=== PATIENT | female | born 1970 | race Two or more races ===

== ENCOUNTER 2024-06-22 00:31 | Emergency (ER) | payer MEDICAID, SELFPAY ==
[2024-06-22 00:59] VITALS: BP 135/79; PULSE 96; RESP 18; TEMP 36.5; O2SAT 95
--- NOTE | 2024-06-22 01:08 | PD.EDADULT ---
ED General RME/HPI General Chief complaint: Allergic Reaction Stated complaint: RASH,ITCHING Time Seen by Provider: 06/22/24 00:45 Arrival date/time: 06/22/24 00:31 RME / HPI RME / HPI narrative: Patient is 54 years old female with past medical history significant for IDDM presented to the ED due to hives in her upper and lower extremities. She reports symptoms started today morning and were bothering her throughout the day. She is taking cetirizine daily but it did not help her today. She reports rash is itchy. She was previously seen in the ED due to similar complaints. She is undergoing diagnostic evaluation with her PCP regarding this hives. She denies any fever, chills, chest pain, shortness of breath, difficulty breathing, facial swelling. She cannot tell what triggers her allergic reaction. Related Data Home Medications ?Medication ?Instructions ?Recorded ?Confirmed metformin 500 mg tablet 500 mg PO BID 10/02/19 10/02/19 Previous Rx's ?Medication ?Instructions ?Recorded albuterol sulfate 90 mcg/actuation 2 puff inhalation QID PRN 09/29/19 aerosol inhaler shortness of breath or wheezing #18 grams amlodipine 10 mg tablet 10 mg PO QDAY #30 tabs 10/17/19 blood sugar diagnostic (Blood #100 ea 10/17/19 Glucose Test strips) blood-glucose meter (Blood Glucose #1 ea 10/17/19 Monitoring kit) insulin glargine 100 unit/mL (3 7 unit (0.07 mL) subcut QDAY #15 mL 10/17/19 mL) subcutaneous pen (Basaglar KwikPen U-100 Insulin) lancets 30 gauge (BD Ultra-Fine II #100 ea 10/17/19 Lancets) pen needle, diabetic 31 gauge x #50 ea 10/17/1904/20 (Lite Touch Insulin Pen [place]) ciprofloxacin HCl 500 mg tablet 500 mg PO BID #10 tabs 11/07/21 diclofenac sodium 50 mg 50 mg PO Q12H PRN pain #30 tabs 11/06/22 tablet,delayed release famotidine 40 mg tablet (Pepcid) 40 mg PO QDAY #14 tabs 02/05/23 loratadine 10 mg capsule 10 mg PO QDAY PRN allergy symptoms 02/05/23 #30 caps montelukast 10 mg tablet 10 mg PO QDAY #30 tabs 02/05/23 (Singulair) albuterol sulfate 90 mcg/actuation 2 puff inhalation Q6H PRN 12/22/23 aerosol inhaler (Ventolin HFA) shortness of breath or wheezing #8.5 grams amoxicillin 875 mg-potassium 1 tab PO BID #14 tabs 12/22/23 clavulanate 125 mg tablet promethazine-DM 6.25 mg-15 mg/5 mL 5 ml PO Q6H PRN cough #118 mL 12/22/23 oral syrup cetirizine 10 mg tablet 10 mg PO QDAY #30 tabs 06/22/24 prednisone 20 mg tablet 40 mg PO BID 2 days #8 tabs 06/22/24 triamcinolone acetonide 0.1 % 1 applic topical BID PRN itching 06/22/24 topical cream #80 grams Allergies Allergy/AdvReac Type Severity Reaction Status Date / Time ondansetron (From Zofran) Allergy Severe Hives Verified 06/22/24 00:32 Review of Systems Review of Systems Systems Reviewed: All systems reviewed, normal except as documented ED Exam Narrative Physical exam: Gen: Well-developed and well-nourished female. HEENT: NCAT, PERRLA, EOMI, MMM, anicteric conjunctivae. CVS: normal S1 and S2. RRR. No M/R/G. Resp: CTA B/L. No rhonchi, rales, crackles or wheezing. Abd: soft, obese, non-tender, non-distended. BS+ in all 4 quadrants. MSK: Good ROM in BUE & BLE. No edema. Hives on extensor surface of upper arms and thighs. Neuro: CN II-XII grossly intact. Strength 5/5 in BUE & BLE. Alert and oriented x3. Psych: appropriate mood and affect. Course Quality Measures none Orders Category Date Time Status DiphenhydrAMINE [Benadryl] Med 06/22/24 01:07 Discontinued 50 mg PO X1 ONE Famotidine [Pepcid] Med 06/22/24 01:34 Discontinued 40 mg PO X1 ONE Triamcinolone Acet Oint 0.5% [Kenalog Oint 0.5%] Med 06/22/24 01:26 Discontinued See Dose Instructions TOP X1 ONE predniSONE Med 06/22/24 01:26 Discontinued 60 mg PO X1 ONE Vital Signs Vital signs: Vital Signs Temperature 97.7 F 06/22/24 00:59 Pulse Rate 96 06/22/24 00:59 Respiratory Rate 18 06/22/24 00:59 Blood Pressure 135/79 H 06/22/24 00:59 Pulse Oximetry (%) 95 06/22/24 00:59 Oxygen Delivery Method Room Air 06/22/24 00:59 [facility] Patient data External records reviewed:: [facility] previous records Clinical information provided by:: patient and family Social determinants that could affect healthcare access:: none Patient has the following chronic illnesses:: IDDM How is presenting disease/condition affected by chronic disease/condition?: uneffected by Evaluation data The following diagnostics were reviewed and interpreted by me:: other (specify) Lab and/or radiology exams considered but not ordered:: CBC, CMP Interpretation Summary: no diagnostic work up was ordered. Medications Medications considered but not ordered:: Fexofenadine, loratadine, cetirizine Medication administrations:: Medication Administration History Discontinued Medications Diphenhydramine HCl (Diphenhydramine Elix 25 Mg/10 Ml Udc) 50 mg PO X1 ONE Stop: 06/22/24 01:08 Last Admin: 06/22/24 01:21 Dose: 50 mg Documented By: Famotidine (Famotidine 20 Mg Tablet) 40 mg PO X1 ONE Stop: 06/22/24 01:35 Last Admin: 06/22/24 01:44 Dose: 40 mg Documented By: CVL Prednisone (Prednisone 20 Mg Tablet) 60 mg PO X1 ONE Stop: 06/22/24 01:27 Last Admin: 06/22/24 02:04 Dose: 60 mg Documented By: CVL Triamcinolone Acetonide (Triamcinolone Acet Oint 0.5% 15 Gm Tube) 0 gm TOP X1 ONE Stop: 06/22/24 01:27 Last Admin: 06/22/24 02:07 Dose: Not Given Documented By: CVL Non-Admin Reason: Medication Not Available Diphenhydramine 50 mg. Consultations Consultation(s) initiated? (list below): No Diagnosis Differential Diagnosis ED Complaint MDM: Hives, cellulitis, burn Most likely diagnosis given after review of the tests above:: Hives Admission Indicated Admission indicated?: not indicated Explain why admission is indicated or not indicated:: Patient has simple allergic reaction as hives. No generalized symptoms. Admission Request Was there a request for admission?: No Disposition Plan Disposition Plan: Discharge Discharge Attestation Discharge Attestation: The patient and all family members were given an opportunity to ask questions and understood the discharge instructions. Discharge instructions specifically effects, indications for sooner follow up or return to the emergency department, and the expected course of current diagnosis. Patient condition: Stable Medical Decision Making Differential Diagnosis Differential Diagnosis: Hives, cellulitis, burn Discharge Plan Plan Patient Disposition: HOME (Self Care) Patient condition on transfer: Stable Prescriptions/Referrals Prescriptions/Med Rec: New cetirizine 10 mg tablet 10 mg PO QDAY Qty: 30 0RF prednisone 20 mg tablet 40 mg PO BID 2 Days Qty: 8 0RF Taper: Prednisone Taper 20 mg DAILY for 2 Days and 0 Hour 10 mg DAILY for 2 Days and 0 Hour 5 mg DAILY for 7 Days and 0 Hour triamcinolone acetonide 0.1 % cream 1 applic topical BID PRN (Reason: itching) Qty: 80 1RF No Action albuterol sulfate 90 mcg/actuation HFA aerosol inhaler 2 puff IH QID PRN (Reason: shortness of breath or wheezing) Qty: 18 0RF ciprofloxacin HCl 500 mg tablet 500 mg PO BID Qty: 10 0RF metformin 500 mg Tablet 500 mg PO BID amlodipine 10 mg tablet 10 mg PO QDAY Qty: 30 0RF Basaglar KwikPen U-100 Insulin 100 unit/mL (3 mL) insulin pen 7 unit SC QDAY Qty: 15 0RF (DME) blood sugar diagnostic [Blood Glucose Test] Strip See Rx Instructions .ROUTE .MEDSUPPLY Qty: 100 0RF Rx Instructions: As directed check blood sugar times a day (DME) blood-glucose meter [Blood Glucose Monitoring] Kit See Rx Instructions .ROUTE .MEDSUPPLY Qty: 1 0RF Rx Instructions: As directed check blood sugar times a day (DME) pen needle, diabetic [Lite Touch Insulin Pen [place]] 31 gauge x 1/4 needle See Rx Instructions .ROUTE .MEDSUPPLY Qty: 50 0RF Rx Instructions: As directed (DME) lancets [BD Ultra-Fine II Lancets] 30 gauge misc See Rx Instructions .ROUTE .MEDSUPPLY Qty: 100 0RF Rx Instructions: As directed montelukast [Singulair] 10 mg tablet 10 mg PO QDAY Qty: 30 0RF loratadine 10 mg capsule 10 mg PO QDAY PRN (Reason: allergy symptoms) Qty: 30 0RF famotidine [Pepcid] 40 mg tablet 40 mg PO QDAY Qty: 14 0RF albuterol sulfate [Ventolin HFA] 90 mcg/actuation HFA aerosol inhaler 2 puff inhalation Q6H PRN (Reason: shortness of breath or wheezing) Qty: 8.5 0RF promethazine-DM 6.25-15 mg/5 mL syrup 5 ml PO Q6H PRN (Reason: cough) Qty: 118 0RF Rx Instructions: sugar-free DM, please amoxicillin-pot clavulanate 875-125 mg tablet 1 tab PO BID Qty: 14 0RF diclofenac sodium 50 mg tablet,delayed release (DR/EC) 50 mg PO Q12H PRN (Reason: pain) Qty: 30 0RF Problem List Clinical Impression: Hives Patient/Caregiver Discharge Instructions Education Materials: ED Hives (Adult) Additional Instructions: Discharge instructions from Dr. Ortega: 1. You were treated today for allergic reaction. 2. To help prevent the reaction going into your airways and your throat, take prednisone as prescribed. 3. And take Benadryl 50 mg every 6-8 hours today and tomorrow then as needed. 4. Increase oral fluid and maintain clear urine.? If dark or yellow, increase oral fluid.? This will help eliminate any allergens in your blood system. 5. Despite severe itching, avoid scratching. Will make the itching worse and damage to the skin. Apply cold compress and triamcinolone cream instead. 6. See your private doctor on 06/24/2024 for recheck. Ask for a referral to see an material liaison so you can be tested to know what to avoid in the future. 7. Seek immediate medical care with worsening, breathing difficulty, or with any concerns. Instrucciones de alisson del Dr. Ortega: 1. Hoy le trataron por gabriel reacci?n al?rgica. 2. Para ayudar a prevenir que la reacci?n llegue a las v?as respiratorias y la garganta, tome prednisona seg?n lo prescrito. 3. Y tome Benadryl 50 mg cada 6-8 horas hoy y ma?priti seg?n sea necesario. 4. Aumente la ingesta de l?quidos por v?a oral y mantenga la orina jocy. Si es oscura o amarilla, aumente la ingesta de l?quidos por v?a oral. [place] ayudar? a eliminar los al?rgenos de [place] sistema sangu?mesha. 5. A pesar de la picaz?n intensa, evite rascarse. [place] empeorar? la picaz?n y da?ar? la piel. En [place] lugar, aplique compresas fr?as y crema de triamcinolona. 6. Visite a [place] m?dico privado el 01/17/2025 para que le gunner un nuevo control. Pida gabriel derivaci?n para cortez a un alerg?logo para que le gunner pruebas y sepan qu? evitar en el futuro. 7. Busque atenci?n m?dica inmediata si empeora, tiene dificultad para respirar o tiene alguna inquietud. Print Language: Armenian Stand Alone Forms: [facility] Award Info., Patient Portal Info Letter Attestation Attestation Patient presented with [id number] of scattered rash with severe itching. Make clinical diagnosis of hives. Treatment here included prednisone and Benadryl and famotidine. She started to feel better. Recommended outpatient care with prednisone and Benadryl and triamcinolone cream. Based on my best medical judgment, made decision no further evaluation or treatment indicated at this time. Patient understands and agrees to the discharge instructions customized and printed, see below. Discharge instructions from Dr. Ortega: 1. You were treated today for allergic reaction. 2. To help prevent the reaction going into your airways and your throat, take prednisone as prescribed. 3. And take Benadryl 50 mg every 6-8 hours today and tomorrow then as needed. 4. Increase oral fluid and maintain clear urine.? If dark or yellow, increase oral fluid.? This will help eliminate any allergens in your blood system. 5. Despite severe itching, avoid scratching. Will make the itching worse and damage to the skin. Apply cold compress and triamcinolone cream instead. 6. See your private doctor on 06/24/2024 for recheck. Ask for a referral to see an material liaison so you can be tested to know what to avoid in the future. 7. Seek immediate medical care with worsening, breathing difficulty, or with any concerns. Instrucciones de alisson del Dr. Ortega: 1. Hoy le trataron por gabriel reacci?n al?rgica. 2. Para ayudar a prevenir que la reacci?n llegue a las v?as respiratorias y la garganta, tome prednisona seg?n lo prescrito. 3. Y tome Benadryl 50 mg cada 6-8 horas hoy y ma?priti seg?n sea necesario. 4. Aumente la ingesta de l?quidos por v?a oral y mantenga la orina jocy. Si es oscura o amarilla, aumente la ingesta de l?quidos por v?a oral. [place] ayudar? a eliminar los al?rgenos de [place] sistema sangu?mesha. 5. A pesar de la picaz?n intensa, evite rascarse. [place] empeorar? la picaz?n y da?ar? la piel. En [place] lugar, aplique compresas fr?as y crema de triamcinolona. 6. Visite a [place] m?dico privado el 01/17/2025 para que le gunner un nuevo control. Pida gabriel derivaci?n para cortez a un alerg?logo para que le gunner pruebas y sepan qu? evitar en el futuro. 7. Busque atenci?n m?dica inmediata si empeora, tiene dificultad para respirar o tiene alguna inquietud. Trey Ortega MD
[2024-06-22] MEDS: DiphenhydrAMINE ELIX 25 MG/10 ML UDC 50 MG PO (01:21)
[2024-06-22] MEDS: FAMOTIDINE 20 MG TABLET 40 MG PO (01:44)
[2024-06-22] MEDS: predniSONE 20 MG TABLET 60 MG PO (02:04)
[2024-06-22 02:12] VITALS: RESP 18
== END 2024-06-22 02:13 | disposition home or self-care (01) ==
LOC: SERX 01:30
PROVIDERS: Emergency Provider Emergency Medicine; PCP Physician Assistant
DX: L50.9 Urticaria, unspecified (principal); E11.9 Type 2 diabetes mellitus without complications; Z79.4 Long term (current) use of insulin
CPT/HCPCS: 99282; J7512; A9270

== ENCOUNTER 2024-07-21 03:42 | Emergency (ER) | payer MEDICAID, SELFPAY ==
[2024-07-21 03:44] VITALS: BMI 28.3
[2024-07-21 03:55] VITALS: BP 131/80; PULSE 77; RESP 18; TEMP 36.9; O2SAT 98
[2024-07-21] MEDS: DEXAMETHASONE SOD PHOS INJ 10 MG/ML VIAL PO (04:55)
--- NOTE | 2024-07-21 05:51 | EDNOTE_ITS ---
ED Allergic Reaction RME/HPI General Chief complaint: Skin/Abscess/Foreign Body Stated complaint: RASH ALL OVER BODY Time Seen by Provider: 07/21/24 04:24 Arrival date/time: 07/21/24 03:42 54F with history of DM and chronic itchiness presents to ED with several days of itchy rash. Patient denies SOB, throat swelling, as well as new foods, meds, and hygiene products. Patient has seen some specialist but they only did blood work and said patient was fine. Limitations: no limitations Related Data Home Medications ?Medication ?Instructions ?Recorded ?Confirmed metformin 500 mg tablet 500 mg PO BID 10/02/1910/01 Previous Rx's ?Medication ?Instructions ?Recorded albuterol sulfate 90 mcg/actuation 2 puff inhalation Q ID PRN 09/29/19 aerosol inhaler shortness of breath or wheez ing #18 grams amlodipine 10 mg tablet 10 mg PO QDAY #30 tabs 10/16 blood sugar diagnostic (Blood #100 ea 10/17/19 Glucose Test strips) blood-glucose meter (Blood Glucose #1 ea 10/17/19 Monitoring kit) insulin glargine 100 unit/mL (3 7 unit (0.07 mL) subcu t QDAY #15 mL 10/17/19 mL) subcutaneous pen (Basaglar KwikPen U-100 Insulin) lancets 30 gauge (BD Ultra-Fine II #100 ea 10/17/19 Lancets) pen needle, diabetic 31 gauge x #50 ea 10/17/19 1/ (Lite Touch Insulin Pen [place]) ciprofloxacin HCl 500 mg tablet 500 mg PO BID #10 tabs 11/07/21 diclofenac sodium 50 mg 50 mg PO Q12H PRN pain #30 t abs 11/06/22 tablet,delayed release famotidine 40 mg tablet (Pepcid) 40 mg PO QDAY #14 tab s 02/05/23 loratadine 10 mg capsule 10 mg PO QDAY PRN allergy sy mptoms 02/05/23 #30 caps montelukast 10 mg tablet 10 mg PO QDAY #30 tabs 02/05 (Singulair) albuterol sulfate 90 mcg/actuation 2 puff inhalation Q 6H PRN 12/22/23 aerosol inhaler (Ventolin HFA) shortness of breath or wheezing #8.5 grams amoxicillin 875 mg-potassium 1 tab PO BID #14 tabs 10/08 clavulanate 125 mg tablet promethazine-DM 6.25 mg-15 mg/5 mL 5 ml PO Q6H PRN cou gh #118 mL 12/22/23 oral syrup cetirizine 10 mg tablet 10 mg PO QDAY #30 tabs 06/22 triamcinolone acetonide 0.1 % 1 applic topical BID PRN itching 06/22/24 topical cream #80 grams Allergies Allergy/AdvReac Type Severity Reaction Status Date / Time ondansetron (From Zofran) Allergy Severe Hives Verified 07/21/24 03:48 Review of Systems Review of Systems Systems Reviewed: All systems reviewed, normal except as documented Constitutional Constitutional: Reports system reviewed and no additional complaints, except as documented, Denies fever(s) and Denies headache(s) ENT Ears, Nose, Mouth, and Throat: Denies disequilibrium and Denies headache(s) Cardiovascular Cardiovascular: Reports system reviewed and no additional complaints, except as documented, Denies chest pain and Denies dyspnea Respiratory Respiratory: Reports system reviewed and no additional complaints, except as documented, Denies cough and Denies dyspnea Gastrointestinal Gastrointestinal: Reports system reviewed and no additional complaints, except as documented, Denies abdominal pain, Denies nausea and Denies vomiting Integumentary/Breasts Skin/Breast: Reports as per HPI, Reports pruritus and Reports rash Neurologic Neurologic: Reports system reviewed and no additional complaints, except as documented, Denies confusion, Denies disequilibrium and Denies headache(s) Psychiatric Psychiatric: Denies confusion Past Medical History Past Medical History CARDIAC: Negative Congestive Heart Failure RESPIRATORY: Negative Chronic Obstructive Pulmonary Disease (COPD) GENITOURINARY: Negative Renal Disease ENDOCRINE: Positive Diabetes Mellitus Type 2; Negative Diabetes Mellitus Type 1 Social History SMOKING STATUS: Never smoker SECOND HAND EXPOSURE: No ED Exam General Limitations: Present no limitations General appearance: Present alert and in no apparent distress Head Head exam: Present atraumatic Eye Eye exam: Present normal appearance, PERRL and EOMI ENT ENT exam: Present normal exam, normal oropharynx and mucous membranes moist Neck Neck exam: Present normal inspection, full ROM and trachea midline Chest Chest inspection: Present normal inspection and symmetric chest wall rise Respiratory Respiratory exam: Present normal lung sounds bilaterally Cardiovascular Cardiovascular exam: Present regular rate, normal rhythm and normal heart sounds Abdominal Exam Abdominal exam: Present soft and normal bowel sounds Extremities Exam Extremities exam: Present normal inspection and full ROM Back Exam Back exam: Present normal inspection and full ROM Neurological Exam Neurological exam: Present alert, oriented X3 and CN II-XII intact Psychiatric Psychiatric exam: Present normal affect and normal mood Skin Skin exam: Present warm, dry, intact and normal color Course Quality Measures none Orders Category Date Time Status Dexamethasone Inj [Decadron Inj] Med 07/21/24 04:24 Discontinued 10 mg PO X1 ONE Vital Signs Vital signs: Vital Signs Temperature 98.4 F 07/21/24 03:55 Pulse Rate 77 07/21/24 03:55 Respiratory Rate 18 07/21/24 03:55 Blood Pressure 131/80 H 07/21/24 03:55 Pulse Oximetry (%) 98 07/21/24 03:55 O2 at 98% on RA and WNLs Allergic Reaction MDM Narrative MDM Narrative:: 54F with history of DM and chronic itchiness presents to ED with several days of itchy rash. Patient denies SOB, throat swelling, as well as new foods, meds, and hygiene products. Patient has seen some specialist but they only did blood work and said patient was fine. Physical exam reveals no obvious rash. Normal WOB. Patient is afebrile, calm, and alert. Steroids improved itching. 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 Patient data External records reviewed:: [facility] previous records Clinical information provided by:: patient Social determinants that could affect healthcare access:: none Patient has the following chronic illnesses:: DM How is presenting disease/condition affected by chronic disease/condition?: exacerbated by Evaluation data The following diagnostics were reviewed and interpreted by me:: other (specify) (none) Lab and/or radiology exams considered but not ordered:: not ordered Interpretation Summary: n/a Medications / Prescriptions Medications or Prescriptions considered but not ordered:: ordered Medication administrations:: Medication Administration History Discontinued Medications Dexamethasone Sodium Phosphate (Dexamethasone Sod Phos Inj 10 Mg/Ml Vial) 10 mg PO X1 ONE Stop: 07/21/24 04:25 Last Admin: 07/21/24 04:55 Dose: 10 mg Documented By: EE above Consultations Consultation(s) initiated? (list below): No Diagnosis Differential Diagnosis allergic reaction: anaphylaxis, allergic reaction, angioedema, contact dermatitis, adverse reaction to drug, viral enanthem, urticaria and other (pruritus) Most likely diagnosis given after review of the tests above:: pruritus Admission Indicated Admission indicated?: not indicated Admission Request Was there a request for admission?: No Disposition Plan Disposition Plan: Discharge Discharge Attestation Discharge Attestation: The patient and all family members were given an opportunity to ask questions and understood the discharge instructions. Discharge instructions specifically effects, indications for sooner follow up or return to the emergency department, and the expected course of current diagnosis. Patient condition: Stable Discharge Plan Plan Patient Disposition: HOME (Self Care) Disposition Comment: Stable Prescriptions/Referrals Prescriptions/Med Rec: No Action albuterol sulfate 90 mcg/actuation HFA aerosol inhaler 2 puff IH QID PRN (Reason: shortness of breath or wheezing) Qty: 18 0RF ciprofloxacin HCl 500 mg tablet 500 mg PO BID Qty: 10 0RF metformin 500 mg Tablet 500 mg PO BID amlodipine 10 mg tablet 10 mg PO QDAY Qty: 30 0RF Basaglar KwikPen U-100 Insulin 100 unit/mL (3 mL) insulin pen 7 unit SC QDAY Qty: 15 0RF (DME) blood sugar diagnostic [Blood Glucose Test] Strip See Rx Instructions .ROUTE .MEDSUPPLY Qty: 100 0RF Rx Instructions: As directed check blood sugar times a day (DME) blood-glucose meter [Blood Glucose Monitoring] Kit See Rx Instructions .ROUTE .MEDSUPPLY Qty: 1 0RF Rx Instructions: As directed check blood sugar times a day (DME) pen needle, diabetic [Lite Touch Insulin Pen [place]] 31 gauge x 1/4 needle See Rx Instructions .ROUTE .MEDSUPPLY Qty: 50 0RF Rx Instructions: As directed (DME) lancets [BD Ultra-Fine II Lancets] 30 gauge misc See Rx Instructions .ROUTE .MEDSUPPLY Qty: 100 0RF Rx Instructions: As directed montelukast [Singulair] 10 mg tablet 10 mg PO QDAY Qty: 30 0RF loratadine 10 mg capsule 10 mg PO QDAY PRN (Reason: allergy symptoms) Qty: 30 0RF famotidine [Pepcid] 40 mg tablet 40 mg PO QDAY Qty: 14 0RF albuterol sulfate [Ventolin HFA] 90 mcg/actuation HFA aerosol inhaler 2 puff inhalation Q6H PRN (Reason: shortness of breath or wheezing) Qty: 8.5 0RF promethazine-DM 6.25-15 mg/5 mL syrup 5 ml PO Q6H PRN (Reason: cough) Qty: 118 0RF Rx Instructions: sugar-free DM, please amoxicillin-pot clavulanate 875-125 mg tablet 1 tab PO BID Qty: 14 0RF cetirizine 10 mg tablet 10 mg PO QDAY Qty: 30 0RF triamcinolone acetonide 0.1 % cream 1 applic topical BID PRN (Reason: itching) Qty: 80 1RF diclofenac sodium 50 mg tablet,delayed release (DR/EC) 50 mg PO Q12H PRN (Reason: pain) Qty: 30 0RF Referrals: Abelrado Buchanan PA-C [Primary Care Provider] - In 1 week Problem List Clinical Impression: Other pruritus Patient/Caregiver Discharge Instructions Additional Instructions: Please follow-up with PCP within 24-48 hours and return immediately if symptoms worsen. Follow-up with nuclear licensing engineer and/or counter intelligence. Watch sugars since steroids increase BS. Print Language: [place] Islander Stand Alone Forms: Patient Portal Info Letter PA/JAY JAY Supervising Physician FRANCESCA/JAY JAY Supervising Physician: Dr. Ortega
== END 2024-07-21 06:00 | disposition home or self-care (01) ==
PROVIDERS: Emergency Provider Emergency Medicine; PCP Physician Assistant
DX: L29.89 Other pruritus (principal)
CPT/HCPCS: 99282; J1100

== ENCOUNTER 2024-12-17 10:02 | Emergency (ER) | payer MEDICAID, SELFPAY ==
--- NOTE | 2024-12-17 10:43 | EDNOTE_ITS ---
<Statement entered by Cassandra Lawler MD - 12/28/24 11:18> As co-signing physician, I was present and available for consult prn. I concur with the plan and care as documented by the midlevel provider. ED Allergic Reaction RME/HPI General Chief complaint: Allergic Reaction Stated complaint: RASH ALL OVER BODY SINCE LAST NIGHT Time Seen by Provider: 12/17/24 10:11 Source: patient Arrival date/time: 12/17/24 10:02 54-year-old female with history of type 2 diabetes, hypertension, hyperlipidemia presents to the emergency room with a chief complaint of a generalized rash to the upper abdomen and chest and face x 2 days Mode of arrival: ambulatory Limitations: no limitations Related Data Home Medications ?Medication ?Instructions ?Recorded ?Confirmed metformin 500 mg tablet 500 mg PO BID 10/02/1910/01 Previous Rx's ?Medication ?Instructions ?Recorded albuterol sulfate 90 mcg/actuation 2 puff inhalation Q ID PRN 09/29/19 aerosol inhaler shortness of breath or wheez ing #18 grams amlodipine 10 mg tablet 10 mg PO QDAY #30 tabs 10/16 blood sugar diagnostic (Blood #100 ea 10/17/19 Glucose Test strips) blood-glucose meter (Blood Glucose #1 ea 10/17/19 Monitoring kit) insulin glargine 100 unit/mL (3 7 unit (0.07 mL) subcu t QDAY #15 mL 10/17/19 mL) subcutaneous pen (Basaglar KwikPen U-100 Insulin) lancets 30 gauge (BD Ultra-Fine II #100 ea 10/17/19 Lancets) pen needle, diabetic 31 gauge x #50 ea 10/17/19 1/ (Lite Touch Insulin Pen [place]) ciprofloxacin HCl 500 mg tablet 500 mg PO BID #10 tabs 11/07/21 diclofenac sodium 50 mg 50 mg PO Q12H PRN pain #30 t abs 11/06/22 tablet,delayed release famotidine 40 mg tablet (Pepcid) 40 mg PO QDAY #14 tab s 02/05/23 loratadine 10 mg capsule 10 mg PO QDAY PRN allergy sy mptoms 02/05/23 #30 caps montelukast 10 mg tablet 10 mg PO QDAY #30 tabs 02/05 (Singulair) albuterol sulfate 90 mcg/actuation 2 puff inhalation Q 6H PRN 12/22/23 aerosol inhaler (Ventolin HFA) shortness of breath or wheezing #8.5 grams amoxicillin 875 mg-potassium 1 tab PO BID #14 tabs 10/08 clavulanate 125 mg tablet promethazine-DM 6.25 mg-15 mg/5 mL 5 ml PO Q6H PRN cou gh #118 mL 12/22/23 oral syrup cetirizine 10 mg tablet 10 mg PO QDAY #30 tabs 06/22 triamcinolone acetonide 0.1 % 1 applic topical BID PRN itching 06/22/24 topical cream #80 grams Allergies Allergy/AdvReac Type Severity Reaction Status Date / Time ondansetron (From Zofran) Allergy Severe Hives Verified 12/17/24 10:06 Review of Systems Review of Systems Systems Reviewed: All systems reviewed, normal except as documented Constitutional Constitutional: Reports system reviewed and no additional complaints, except as documented, Denies fatigue, Denies fever(s), Denies headache(s) and Denies weakness Eyes Eyes: Reports system reviewed and no additional complaints, except as documented, Denies blurry vision, Denies change in vision and Denies itchy eyes ENT Ears, Nose, Mouth, and Throat: Reports system reviewed and no additional complaints, except as documented, Denies otalgia, Denies headache(s), Denies lip swelling, Denies nasal congestion, Denies throat swelling, Denies tongue swelling and Denies vertigo Cardiovascular Cardiovascular: Reports system reviewed and no additional complaints, except as documented, Denies chest pain, Denies dyspnea and Denies dyspnea on exertion Respiratory Respiratory: Reports system reviewed and no additional complaints, except as documented, Denies chest congestion, Denies cough, Denies dyspnea, Denies dyspnea on exertion and Denies wheezing Gastrointestinal Gastrointestinal: Reports system reviewed and no additional complaints, except as documented, Denies abdominal pain, Denies cramping, Denies nausea and Denies vomiting Genitourinary Genitourinary: Reports system reviewed and no additional complaints, except as documented Musculoskeletal Musculoskeletal: Reports system reviewed and no additional complaints, except as documented and Denies back pain Integumentary/Breasts Skin/Breast: Reports system reviewed and no additional complaints, except as documented, Reports pruritus, Reports rash and Denies wounds Neurologic Neurologic: Reports system reviewed and no additional complaints, except as documented, Denies confusion, Denies headache(s), Denies lack of coordination, Denies vertigo and Denies weakness Psychiatric Psychiatric: Reports system reviewed and no additional complaints, except as documented, Denies anxiety, Denies confusion, Denies depression, Denies paranoia, Denies suicidal ideation and Denies tactile hallucinations Endocrine Endocrine: Reports system reviewed and no additional complaints, except as documented and Denies fatigue Hematologic/Lymphatic Hematologic/Lymphatic: Reports system reviewed and no additional complaints, except as documented and Denies lymphadenopathy Allergic/Immunologic Allergic/Immunologic: Reports system reviewed and no additional complaints, except as documented, Denies as per HPI, Denies GI upset with certain foods, Denies itchy eyes, Denies lip swelling, Denies seasonal rhinorrhea, Denies throat swelling, Denies tongue swelling, Denies urticaria and Denies wheezing Past Medical History Past Medical History CARDIAC: Negative Congestive Heart Failure RESPIRATORY: Negative Chronic Obstructive Pulmonary Disease (COPD) GENITOURINARY: Negative Renal Disease ENDOCRINE: Positive Diabetes Mellitus Type 2; Negative Diabetes Mellitus Type 1 Social History SMOKING STATUS: Never smoker SECOND HAND EXPOSURE: No ED Exam General Limitations: Present no limitations General appearance: Present alert and in no apparent distress Head Head exam: Present atraumatic Eye Eye exam: Present normal appearance, PERRL and EOMI ENT ENT exam: Present normal exam, normal oropharynx and mucous membranes moist Neck Neck exam: Present normal inspection, full ROM and trachea midline Chest Chest inspection: Present normal inspection and symmetric chest wall rise Respiratory Respiratory exam: Present normal lung sounds bilaterally; Absent respiratory distress, wheezes, stridor, accessory muscle use or prolonged expiratory phase Cardiovascular Cardiovascular exam: Present regular rate, normal rhythm and normal heart sounds Abdominal Exam Abdominal exam: Present soft and normal bowel sounds Extremities Exam Extremities exam: Present normal inspection and full ROM Back Exam Back exam: Present normal inspection and full ROM Neurological Exam Neurological exam: Present alert, oriented X3 and CN II-XII intact Psychiatric Psychiatric exam: Present normal affect and normal mood Skin Skin exam: Present warm, dry, intact, normal color and rash Course Quality Measures none Orders Category Date Time Status DiphenhydrAMINE [Benadryl] Med 12/17/24 10:42 Discontinued 25 mg PO X1 ONE Famotidine [Pepcid] Med 12/17/24 10:42 Discontinued 20 mg PO X1 ONE dexAMETHasone TAB [Decadron Tab] Med 12/17/24 10:42 Discontinued 10 mg PO X1 ONE Vital Signs Vital signs: Vital Signs Temperature 98.8 F 12/17/24 10:45 Pulse Rate 91 12/17/24 10:45 Respiratory Rate 18 12/17/24 10:45 Blood Pressure 126/77 12/17/24 10:45 Pulse Oximetry (%) 98 12/17/24 10:45 Oxygen Delivery Method Room Air 12/17/24 10:45 Allergic Reaction MDM Narrative MDM Narrative:: 54-year-old female with history of type 2 diabetes, hypertension, hyperlipidemia presents to the emergency room with a chief complaint of a generalized rash to the upper abdomen and chest and face x 2 days Patient is hemodynamically stable and in no apparent distress she is not tachycardic tachypneic and O2 saturation is 98% on room air Physical examination shows clear bilateral lung sounds there is no stridor or any abnormal breath sounds. The patient is nontoxic-appearing and not in any respiratory distress. There is no tongue swelling lip swelling or difficulty breathing Antihistamines were given with improvement to the patient's itchiness and symptoms in her arms Patient was discharged and educated to follow-up with primary care provider in the next 24 to 48 hours and return to the emergency room for any evidence of worsening signs or symptoms Patient data External records reviewed:: [facility] previous records Clinical information provided by:: patient Social determinants that could affect healthcare access:: none Patient has the following chronic illnesses:: No chronic illness How is presenting disease/condition affected by chronic disease/condition?: no chronic disease Evaluation data The following diagnostics were reviewed and interpreted by me:: lab results and radiology exam(s) Lab and/or radiology exams considered but not ordered:: Labs and radiology exams considered in order Interpretation Summary: N/A Medications / Prescriptions Medications or Prescriptions considered but not ordered:: Medication given Medication administrations:: Medication Administration History Discontinued Medications Dexamethasone (Dexamethasone 4 Mg Tablet) 10 mg PO X1 ONE Stop: 12/17/24 10:43 Last Admin: 12/17/24 10:53 Dose: 10 mg Documented By: OA Diphenhydramine HCl (Diphenhydramine Elix 25 Mg/10 Ml [facility] [place]) 25 mg PO X1 ONE Stop: 12/17/24 10:43 Last Admin: 09/02/25 10:53 Dose: 25 mg Documented By: PACO Famotidine (Famotidine 20 Mg Tablet) 20 mg PO X1 ONE Stop: 12/17/24 10:43 Last Admin: 12/17/24 10:53 Dose: 20 mg Documented By: OA Medication given Consultations Consultation(s) initiated? (list below): No Diagnosis Differential Diagnosis allergic reaction: anaphylaxis, allergic reaction, angioedema, contact dermatitis and urticaria Most likely diagnosis given after review of the tests above:: Allergic reaction Admission Indicated Admission indicated?: not indicated Admission Request Was there a request for admission?: No Disposition Plan Disposition Plan: Discharge Discharge Attestation Discharge Attestation: The patient and all family members were given an opportunity to ask questions and understood the discharge instructions. Discharge instructions specifically effects, indications for sooner follow up or return to the emergency department, and the expected course of current diagnosis. Patient condition: Stable Discharge Plan Plan Patient Disposition: HOME (Self Care) Discharge Disposition comment: Stable Prescriptions/Referrals Prescriptions/Med Rec: No Action albuterol sulfate 90 mcg/actuation HFA aerosol inhaler 2 puff IH QID PRN (Reason: shortness of breath or wheezing) Qty: 18 0RF ciprofloxacin HCl 500 mg tablet 500 mg PO BID Qty: 10 0RF metformin 500 mg Tablet 500 mg PO BID amlodipine 10 mg tablet 10 mg PO QDAY Qty: 30 0RF Basaglar KwikPen U-100 Insulin 100 unit/mL (3 mL) insulin pen 7 unit SC QDAY Qty: 15 0RF (DME) blood sugar diagnostic [Blood Glucose Test] Strip See Rx Instructions .ROUTE .MEDSUPPLY Qty: 100 0RF Rx Instructions: As directed check blood sugar times a day (DME) blood-glucose meter [Blood Glucose Monitoring] Kit See Rx Instructions .ROUTE .MEDSUPPLY Qty: 1 0RF Rx Instructions: As directed check blood sugar times a day (DME) pen needle, diabetic [Lite Touch Insulin Pen [place]] 31 gauge x 1/4 needle See Rx Instructions .ROUTE .MEDSUPPLY Qty: 50 0RF Rx Instructions: As directed (DME) lancets [BD Ultra-Fine II Lancets] 30 gauge misc See Rx Instructions .ROUTE .MEDSUPPLY Qty: 100 0RF Rx Instructions: As directed montelukast [Singulair] 10 mg tablet 10 mg PO QDAY Qty: 30 0RF loratadine 10 mg capsule 10 mg PO QDAY PRN (Reason: allergy symptoms) Qty: 30 0RF famotidine [Pepcid] 40 mg tablet 40 mg PO QDAY Qty: 14 0RF albuterol sulfate [Ventolin HFA] 90 mcg/actuation HFA aerosol inhaler 2 puff inhalation Q6H PRN (Reason: shortness of breath or wheezing) Qty: 8.5 0RF promethazine-DM 6.25-15 mg/5 mL syrup 5 ml PO Q6H PRN (Reason: cough) Qty: 118 0RF Rx Instructions: sugar-free DM, please amoxicillin-pot clavulanate 875-125 mg tablet 1 tab PO BID Qty: 14 0RF cetirizine 10 mg tablet 10 mg PO QDAY Qty: 30 0RF triamcinolone acetonide 0.1 % cream 1 applic topical BID PRN (Reason: itching) Qty: 80 1RF diclofenac sodium 50 mg tablet,delayed release (DR/EC) 50 mg PO Q12H PRN (Reason: pain) Qty: 30 0RF Referrals: Abelardo Buchanan PA-C [Primary Care Provider] - In 1 week Problem List Clinical Impression: Allergic reaction Patient/Caregiver Discharge Instructions Education Materials: ED Medicine Reaction: Allergic Additional Instructions: Please follow-up with your primary care provider in the next 24 to 48 hours For any evidence of worsening signs or symptoms return emergency room immediately Print Language: Vincentian Stand Alone Forms: Shahla Award Info., Patient Portal Info Letter PA/JAY JAY Supervising Physician PA/ASSESSMENT SERVICES MANAGER Supervising Physician: Dr. LAWLER
[2024-12-17 10:45] VITALS: BP 126/77; PULSE 91; RESP 18; TEMP 37.1; O2SAT 98
[2024-12-17] MEDS: DiphenhydrAMINE ELIX 25 MG/10 ML UDC PO (10:53)
[2024-12-17] MEDS: FAMOTIDINE 20 MG TABLET PO (10:53)
== END 2024-12-17 12:27 | disposition home or self-care (01) ==
PROVIDERS: Emergency Provider Emergency Medicine; PCP Physician Assistant
DX: R21 Rash and other nonspecific skin eruption (principal)
CPT/HCPCS: 99283; J8540; A9270

== ENCOUNTER 2024-12-19 05:04 | Emergency (ER) | payer MEDICAID, SELFPAY ==
[2024-12-19 05:05] VITALS: BP 157/79; PULSE 89; RESP 17; TEMP 36.8; O2SAT 95
--- NOTE | 2024-12-19 06:30 | XR_ITS ---
Examination: PA lateral chest 2 views TECHNIQUE: Upright PA lateral chest 2 views Date and time: December 19, 2024 0713 hours INDICATIONS: Shortness of breath today, Covid positive yesterday FINDINGS: Normal heart size. Lungs are clear. The osseous structures are intact IMPRESSION: No active disease
[2024-12-19] MEDS: DEXAMETHASONE SOD PHOS INJ 10 MG/ML VIAL PO (06:43)
--- NOTE | 2024-12-19 07:27 | PD.EDSOB ---
ED SOB =RME/HPI General Chief Complaint: Shortness of Breath/Dyspnea Stated Complaint: COVID (+), COUGH Time Seen by Provider: 12/19/24 06:46 Arrival date/time: 12/19/24 05:04 54-year-old female with medical history significant for hypertension and diabetes presents to the emergency department stating she tested positive for COVID-19 at home patient reports persistent cough and congestion Limitations: no limitations Related Data Home Medications ?Medication ?Instructions ?Recorded ?Confirmed metformin 500 mg tablet 500 mg PO BID 10/02/19 10/02/19 Previous Rx's ?Medication ?Instructions ?Recorded albuterol sulfate 90 mcg/actuation 2 puff inhalation QID PRN 09/29/19 aerosol inhaler shortness of breath or wheezing #18 grams amlodipine 10 mg tablet 10 mg PO QDAY #30 tabs 10/17/19 blood sugar diagnostic (Blood #100 ea 10/17/19 Glucose Test strips) blood-glucose meter (Blood Glucose #1 ea 10/17/19 Monitoring kit) insulin glargine 100 unit/mL (3 7 unit (0.07 mL) subcut QDAY #15 mL 10/17/19 mL) subcutaneous pen (Digital Signalaglar KwikPen U-100 Insulin) lancets 30 gauge (BD Ultra-Fine II #100 ea 10/17/19 Lancets) pen needle, diabetic 31 gauge x #50 ea 10/17/19 1/ (Lite Touch Insulin Pen [place]) ciprofloxacin HCl 500 mg tablet 500 mg PO BID #10 tabs 11/07/21 diclofenac sodium 50 mg 50 mg PO Q12H PRN pain #30 tabs 11/06/22 tablet,delayed release famotidine 40 mg tablet (Pepcid) 40 mg PO QDAY #14 tabs 02/05/23 loratadine 10 mg capsule 10 mg PO QDAY PRN allergy symptoms 02/05/23 #30 caps montelukast 10 mg tablet 10 mg PO QDAY #30 tabs 02/05/23 (Singulair) albuterol sulfate 90 mcg/actuation 2 puff inhalation Q6H PRN 12/22/23 aerosol inhaler (Ventolin HFA) shortness of breath or wheezing #8.5 grams amoxicillin 875 mg-potassium 1 tab PO BID #14 tabs 12/22/23 clavulanate 125 mg tablet promethazine-DM 6.25 mg-15 mg/5 mL 5 ml PO Q6H PRN cough #118 mL 12/22/23 oral syrup cetirizine 10 mg tablet 10 mg PO QDAY #30 tabs 06/22/24 triamcinolone acetonide 0.1 % 1 applic topical BID PRN itching 06/22/24 topical cream #80 grams albuterol sulfate 90 mcg/actuation 2 inh inhalation Q6H PRN shortness 12/19/24 breath activated powder inhaler of breath or wheezing #1 ea azithromycin 500 mg tablet See Rx Instructions PO .COMPLEX #6 12/19/24 tabs benzonatate 100 mg capsule 100 mg PO TID #14 caps 12/19/24 ibuprofen 600 mg tablet 600 mg PO Q6H #30 tabs 12/19/24 Allergies Allergy/AdvReac Type Severity Reaction Status Date / Time ondansetron (From Zofran) Allergy Severe Hives Verified 12/17/24 10:06 Review of Systems Review of Systems Systems Reviewed: All systems reviewed, normal except as documented Constitutional Constitutional: Reports system reviewed and no additional complaints, except as documented, Denies fever(s) and Denies headache(s) Eyes Eyes: Reports system reviewed and no additional complaints, except as documented and Denies blurry vision ENT Ears, Nose, Mouth, and Throat: Reports system reviewed and no additional complaints, except as documented, Denies headache(s), Reports nasal congestion and Reports nasal discharge Cardiovascular Cardiovascular: Reports system reviewed and no additional complaints, except as documented, Denies chest pain and Denies dyspnea Respiratory Respiratory: Reports system reviewed and no additional complaints, except as documented, Reports chest congestion, Reports cough and Denies dyspnea Gastrointestinal Gastrointestinal: Reports system reviewed and no additional complaints, except as documented and Denies abdominal pain Integumentary/Breasts Skin/Breast: Reports system reviewed and no additional complaints, except as documented and Denies rash Neurologic Neurologic: Reports system reviewed and no additional complaints, except as documented, Reports as per HPI and Denies headache(s) Past Medical History Past Medical History CARDIAC: Negative Congestive Heart Failure RESPIRATORY: Negative Chronic Obstructive Pulmonary Disease (COPD) GENITOURINARY: Negative Renal Disease ENDOCRINE: Positive Diabetes Mellitus Type 2; Negative Diabetes Mellitus Type 1 Social History SMOKING STATUS: Never smoker SECOND HAND EXPOSURE: No ED Exam General Limitations: Present no limitations General appearance: Present alert and in no apparent distress Head Head exam: Present atraumatic Eye Eye exam: Present normal appearance, PERRL and EOMI ENT ENT exam: Present normal exam, normal oropharynx and mucous membranes moist Neck Neck exam: Present normal inspection, full ROM and trachea midline Chest Chest inspection: Present normal inspection and symmetric chest wall rise Respiratory Respiratory exam: Present normal lung sounds bilaterally Cardiovascular Cardiovascular exam: Present regular rate, normal rhythm and normal heart sounds Abdominal Exam Abdominal exam: Present soft and normal bowel sounds Extremities Exam Extremities exam: Present normal inspection and full ROM Back Exam Back exam: Present normal inspection and full ROM Neurological Exam Neurological exam: Present alert, oriented X3 and CN II-XII intact Psychiatric Psychiatric exam: Present normal affect and normal mood Skin Skin exam: Present warm, dry, intact and normal color Course Quality Measures none Orders Category Date Time Status XR chest 2V Stat Exams 12/19/24 06:30 Completed Dexamethasone Inj [Decadron Inj] Med 12/19/24 06:30 Discontinued 10 mg PO X1 ONE Vital Signs Vital signs: Vital Signs Temperature 98.2 F 12/19/24 05:05 Pulse Rate 89 12/19/24 05:05 Respiratory Rate 17 12/19/24 05:05 Blood Pressure 157/79 H 12/19/24 05:05 Pulse Oximetry (%) 95 12/19/24 05:05 Oxygen Delivery Method Room Air 12/19/24 05:05 O2 saturation 95% room air within normal limits Shortness of Breath / Dyspnea MDM Narrative MDM Narrative:: 54-year-old female with medical history significant for hypertension and diabetes presents to the emergency department stating she tested positive for COVID-19 at home patient reports persistent cough and congestion On exam patient does not appear ill or toxic no acute distress Chest x-ray obtained reviewed by me Patient discharged home with medication At time of discharge patient is in no acute distress patient is no tachypnea or dyspnea no increased work of breathing Patient discharged home in no distress to follow-up with primary care doctor in the next 24 to 48 hours and for any worsening symptoms to return to the ER immediately Patient data External records reviewed:: [facility] previous records Clinical information provided by:: patient Social determinants that could affect healthcare access:: none Patient has the following chronic illnesses:: None How is presenting disease/condition affected by chronic disease/condition?: no chronic disease Evaluation data The following diagnostics were reviewed and interpreted by me:: lab results and radiology exam(s) Lab and/or radiology exams considered but not ordered:: Labs radiology obtained Interpretation Summary: Reviewed by me Medications / Prescriptions Medications or Prescriptions considered but not ordered:: Given Medication administrations:: Medication Administration History Discontinued Medications Dexamethasone Sodium Phosphate (Dexamethasone Sod Phos Inj 10 Mg/Ml Vial) 10 mg PO X1 ONE Stop: 12/19/24 06:31 Last Admin: 12/19/24 06:43 Dose: 10 mg Documented By: CVL Given Consultations Consultation(s) initiated? (list below): No Diagnosis Shortness of Breath Differential Diagnosis: acute exacerbation of chronic obstructive airways disease, congestive heart failure, community acquired pneumonia, asthma with exacerbation and pulmonary embolism Most likely diagnosis given after review of the tests above:: COVID-19 Admission Indicated Admission indicated?: not indicated Admission Request Was there a request for admission?: No Disposition Plan Disposition Plan: Discharge Discharge Attestation Discharge Attestation: The patient and all family members were given an opportunity to ask questions and understood the discharge instructions. Discharge instructions specifically effects, indications for sooner follow up or return to the emergency department, and the expected course of current diagnosis. Patient condition: Stable Discharge Plan Plan Patient Disposition: HOME (Self Care) Discharge Disposition comment: Stable Prescriptions/Referrals Prescriptions/Med Rec: New benzonatate 100 mg capsule 100 mg PO TID Qty: 14 0RF ibuprofen 600 mg tablet 600 mg PO Q6H Qty: 30 0RF azithromycin 500 mg tablet See Rx Instructions .ROUTE .COMPLEX Qty: 6 0RF Rx Instructions: take 500 mg today (day 1), then 250 mg for 4 days (days 2-5) albuterol sulfate 90 mcg/actuation aerosol powdr breath activated 2 inh inhalation Q6H PRN (Reason: shortness of breath or wheezing) Qty: 1 0RF No Action albuterol sulfate 90 mcg/actuation HFA aerosol inhaler 2 puff IH QID PRN (Reason: shortness of breath or wheezing) Qty: 18 0RF ciprofloxacin HCl 500 mg tablet 500 mg PO BID Qty: 10 0RF metformin 500 mg Tablet 500 mg PO BID amlodipine 10 mg tablet 10 mg PO QDAY Qty: 30 0RF Basaglar KwikPen U-100 Insulin 100 unit/mL (3 mL) insulin pen 7 unit SC QDAY Qty: 15 0RF (DME) blood sugar diagnostic [Blood Glucose Test] Strip See Rx Instructions .ROUTE .MEDSUPPLY Qty: 100 0RF Rx Instructions: As directed check blood sugar times a day (DME) blood-glucose meter [Blood Glucose Monitoring] Kit See Rx Instructions .ROUTE .MEDSUPPLY Qty: 1 0RF Rx Instructions: As directed check blood sugar times a day (DME) pen needle, diabetic [Lite Touch Insulin Pen [place]] 31 gauge x 1/4 needle See Rx Instructions .ROUTE .MEDSUPPLY Qty: 50 0RF Rx Instructions: As directed (DME) lancets [BD Ultra-Fine II Lancets] 30 gauge misc See Rx Instructions .ROUTE .MEDSUPPLY Qty: 100 0RF Rx Instructions: As directed montelukast [Singulair] 10 mg tablet 10 mg PO QDAY Qty: 30 0RF loratadine 10 mg capsule 10 mg PO QDAY PRN (Reason: allergy symptoms) Qty: 30 0RF famotidine [Pepcid] 40 mg tablet 40 mg PO QDAY Qty: 14 0RF albuterol sulfate [Ventolin HFA] 90 mcg/actuation HFA aerosol inhaler 2 puff inhalation Q6H PRN (Reason: shortness of breath or wheezing) Qty: 8.5 0RF promethazine-DM 6.25-15 mg/5 mL syrup 5 ml PO Q6H PRN (Reason: cough) Qty: 118 0RF Rx Instructions: sugar-free DM, please amoxicillin-pot clavulanate 875-125 mg tablet 1 tab PO BID Qty: 14 0RF cetirizine 10 mg tablet 10 mg PO QDAY Qty: 30 0RF triamcinolone acetonide 0.1 % cream 1 applic topical BID PRN (Reason: itching) Qty: 80 1RF diclofenac sodium 50 mg tablet,delayed release (DR/EC) 50 mg PO Q12H PRN (Reason: pain) Qty: 30 0RF Problem List Clinical Impression: COVID-19, Cough Patient/Caregiver Discharge Instructions Education Materials: COVID-19 Home Care Additional Instructions: Please follow up with your primary care doctor in the next 24-48hrs for any worsening symptoms return here immediately Print Language: Monegasque Stand Alone Forms: Shahla Award Info., Patient Portal Info Letter PA/ROCK CLIMBING INSTRUCTOR Supervising Physician PA/ROCK CLIMBING INSTRUCTOR Supervising Physician: Dr. box
== END 2024-12-19 07:50 | disposition home or self-care (01) ==
PROVIDERS: Emergency Provider Family Medicine; PCP Physician Assistant
DX: U07.1 COVID-19 (principal); I10 Essential (primary) hypertension
CPT/HCPCS: 71046; 99283; J1100

== ENCOUNTER 2025-01-12 05:49 | Emergency (ER) | payer MEDICAID, SELFPAY ==
--- NOTE | 2025-01-12 05:54 | EKG_ITS ---
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[id number] Requested By: ED Temporary Provider Order Number: [id number] Reading MD: ED Temporary Provider Measurements Intervals [place] Rate: 84 P: 35 MA: 162 QRS: -34 QRSD: 78 T: 27 QT: 362 QTc: 428 Interpretive Statements SINUS RHYTHM LOW QRS VOLTAGE IN PRECORDIAL LEADS [QRS DEFLECTION < 1.0 mV IN CHEST LEADS] MINIMAL VOLTAGE CRITERIA FOR LVH, CONSIDER NORMAL VARIANT [MEETS CRITERIA IN ONE OF: R(aVL), S(V1), R(V5), R(V5/V6)+S(V1)] INFERIOR MYOCARDIAL INFARCTION , PROBABLY OLD [40+ ms Q WAVE AND/OR ST/T ABNORMALITY IN II/aVF] ANTEROLATERAL MYOCARDIAL INFARCTION , OF INDETERMINATE AGE [40+ ms Q WAVE IN I/aVL/V3-V6] Compared to ECG 12/22/2023 09:13:23 Left-axis deviation no longer present Myocardial infarct finding still present /store/S0/[id number]/ecg/[id number].pdf
[2025-01-12 06:07] VITALS: BP 125/78; PULSE 89; RESP 18; TEMP 37; O2SAT 95
--- NOTE | 2025-01-12 06:34 | XR_ITS ---
Examination: PA lateral chest 2 views Technique: Upright PA lateral chest 2 views Date and time: January 12, 647 hrs., Comparison 12/19/2024 Indications: Chest pain left side of the sternum, post injury, patient heard a pop in the chest followed by chest pain Findings: Normal heart size The lungs are clear. The osseous structures are intact Impression: No active disease
[2025-01-12] MEDS: ACETAMINOPHEN 500 MG TABLET 1000 MG PO (06:42)
[2025-01-12] MEDS: IBUPROFEN TAB 400 MG TABLET 800 MG PO (06:42)
--- NOTE | 2025-01-12 06:42 | EDNOTE_ITS ---
ED Chest Pain RME/HPI General Chief Complaint: Chest Pain Stated Complaint: CHEST PAIN Time Seen by Provider: 01/12/25 06:17 Arrival date/time: 01/12/25 05:49 This is a 54-year-old female that comes into the emergency room with complaints of chest pain to the left lateral lower chest. Patient states that she was cleaning under her bed and was laying on her stomach and turned a certain way and felt like something might. Patient states she is very sore on her mid left lateral chest. Patient denies any shortness of breath. Patient denies any other symptoms. Patient does have a history of high blood pressure diabetes. Related Data Home Medications ?Medication ?Instructions ?Recorded ?Confirmed metformin 500 mg tablet 500 mg PO BID 10/02/1910/01 Previous Rx's ?Medication ?Instructions ?Recorded albuterol sulfate 90 mcg/actuation 2 puff inhalation Q ID PRN 09/29/19 aerosol inhaler shortness of breath or wheez ing #18 grams amlodipine 10 mg tablet 10 mg PO QDAY #30 tabs 10/16 blood sugar diagnostic (Blood #100 ea 10/17/19 Glucose Test strips) blood-glucose meter (Blood Glucose #1 ea 10/17/19 Monitoring kit) insulin glargine 100 unit/mL (3 7 unit (0.07 mL) subcu t QDAY #15 mL 10/17/19 mL) subcutaneous pen (Basaglar KwikPen U-100 Insulin) lancets 30 gauge (BD Ultra-Fine II #100 ea 10/17/19 Lancets) pen needle, diabetic 31 gauge x #50 ea 10/17/1904/20 (Lite Touch Insulin Pen Bois D Arc) ciprofloxacin HCl 500 mg tablet 500 mg PO BID #10 tabs 11/07/21 diclofenac sodium 50 mg 50 mg PO Q12H PRN pain #30 t abs 11/06/22 tablet,delayed release famotidine 40 mg tablet (Pepcid) 40 mg PO QDAY #14 tab s 02/05/23 loratadine 10 mg capsule 10 mg PO QDAY PRN allergy sy mptoms 02/05/23 #30 caps montelukast 10 mg tablet 10 mg PO QDAY #30 tabs 02/05 (Singulair) albuterol sulfate 90 mcg/actuation 2 puff inhalation Q 6H PRN 12/22/23 aerosol inhaler (Ventolin HFA) shortness of breath or wheezing #8.5 grams amoxicillin 875 mg-potassium 1 tab PO BID #14 tabs 10/08 clavulanate 125 mg tablet promethazine-DM 6.25 mg-15 mg/5 mL 5 ml PO Q6H PRN cou gh #118 mL 12/22/23 oral syrup cetirizine 10 mg tablet 10 mg PO QDAY #30 tabs 06/22 triamcinolone acetonide 0.1 % 1 applic topical BID PRN itching 06/22/24 topical cream #80 grams albuterol sulfate 90 mcg/actuation 2 inh inhalation Q6 H PRN shortness 12/19/24 breath activated powder inhaler of breath or wheezing #1 ea azithromycin 500 mg tablet See Rx Instructions PO .COM PLEX #6 12/19/24 tabs benzonatate 100 mg capsule 100 mg PO TID #14 caps 08/09 ibuprofen 600 mg tablet 600 mg PO Q6H #30 tabs 12/19 cyclobenzaprine 10 mg tablet 10 mg PO TID PRN muscle s pasm #20 01/12/25 tabs ibuprofen 800 mg tablet 800 mg PO Q6H PRN pain #14 t abs 01/12/25 Allergies Allergy/AdvReac Type Severity Reaction Status Date / Time ondansetron (From Zofran) Allergy Severe Hives Verified 01/12/25 06:00 Review of Systems Review of Systems Systems Reviewed: All systems reviewed, normal except as documented Past Medical History Past Medical History CARDIAC: Negative Congestive Heart Failure RESPIRATORY: Negative Chronic Obstructive Pulmonary Disease (COPD) GENITOURINARY: Negative Renal Disease ENDOCRINE: Positive Diabetes Mellitus Type 2; Negative Diabetes Mellitus Type 1 Social History SMOKING STATUS: Never smoker SECOND HAND EXPOSURE: No ED Exam Narrative Physical exam: VITAL SIGNS: Reviewed. GENERAL APPEARANCE: Alert and interactive, follows commands, no acute distress, HEAD AND FACE: Non-traumatic. ENT: PERRL, conjuctiva pink and clear, eyelid no trauma, Mucous membrane moist. NECK: Supple, nontender, no nuchal rigidity. CHEST: No tenderness, no crepitus, no paradoxical movement, no retractions. LUNGS: Clear, well ventilated, symmetric, no rales, no wheezing, no rhonchi, no stridor, good breath sounds bilaterally. HEART: Regular rate, regular rhythm, no murmur, no gallops. ABDOMEN: Soft, nondistended, no guarding, nontender NEUROLOGICAL: Gross motor function intact sensory function intact, Appropriate for age. MUSCULOSKELETAL: low back nontender, full range of motion. EXTREMITIES: No redness no swelling no skin breakdown on bilateral foot and leg. Distal neurovascular status intact bilateral foot SKIN: Color pink, dry, no rash, no lacerations, no abrasions, no contusions. Course Quality Measures none Orders Category Date Time Status EKG (ED ONLY) *Do not use* NOW Care 01/12/25 05:54 Completed EKG (ED ONLY) *Do not use* NOW Care 01/12/25 06:14 Completed EKG (ED Only) Stat Exams 01/12/25 05:54 Draft EKG (ED Only) Stat Exams 01/12/25 06:14 Ordered XR chest 2V Stat Exams 01/12/25 06:34 Completed Acetaminophen Tab [Tylenol ES Tab] Med 01/12/25 06:33 Discontinued 1,000 mg PO X1 ONE CYCLObenzaPRINE [Flexeril] Med 01/12/25 06:33 Discontinued 10 mg PO X1 ONE HYDROcodone*/APAP 5/325 [Kouts 5/325] Med 01/12/25 08:00 Discontinued 1 tab PO X1 ONE Ibuprofen Tab [Motrin Tab] Med 01/12/25 06:33 Discontinued 800 mg PO X1 ONE Vital Signs Vital signs: Vital Signs Temperature 98.6 F 01/12/25 06:07 Pulse Rate 89 01/12/25 06:07 Respiratory Rate 18 01/12/25 06:07 Blood Pressure 125/78 01/12/25 06:07 Pulse Oximetry (%) 95 01/12/25 06:07 Oxygen Delivery Method Room Air 01/12/25 06:07 PROCEDURES: EKG Interpretation #1: Date of EK01/12/25 Time of EK:03 Rate: 84 Interpretation: Interpreted by me (sinus rhythm) EKG Impression: No ectopy, Normal QRS and Normal intervals Chest Pain MDM Narrative MDM Narrative:: Patient feels better after pain medication. Spoke with patient at length. Patient feels comfortable going home at this time. Patient states that as soon as she was cleaning under the bed she felt like something in her rib popped and started having the pain. Perhaps muscle strain. Will have patient follow-up with primary provider in 1 to 2 days. come back to emergency room symptoms change or worsen. Will send patient home with anti-inflammatories and muscle relaxers. chest x ray: Findings: Normal heart size The lungs are clear. The osseous structures are intact Impression: No active disease Follow up with primary provider in 1-2 days. Come back to ED if symptoms change or worsen Dragon dictation: Although this document has been carefully reviewed, there may still be some phonetic and other typographical errors. These errors are purely grammatical due to imperfections in the software program and should not be construed in any way to compromise the substance of the patient's medical care during this visit. Patient data External records reviewed:: [facility] previous records Clinical information provided by:: patient Social determinants that could affect healthcare access:: none Patient has the following chronic illnesses:: See HPI How is presenting disease/condition affected by chronic disease/condition?: no chronic disease Evaluation data The following diagnostics were reviewed and interpreted by me:: radiology exam(s) Lab and/or radiology exams considered but not ordered:: None Interpretation Summary: See note Medications / Prescriptions Medications or Prescriptions considered but not ordered:: None Medication administrations:: Medication Administration History Discontinued Medications Acetaminophen (Acetaminophen 500 Mg Tablet) 1,000 mg PO X1 ONE Stop: 01/12/25 06:34 Last Admin: 01/12/25 06:42 Dose: 1,000 mg Documented By: BD Hydrocodone Bitart/Acetaminophen (Hydrocodone/Apap 5/325 Tablet) 1 tab PO X1 ONE Stop: 01/12/25 08:01 Last Admin: 01/12/25 08:15 Dose: 1 tab Documented By: ED Cyclobenzaprine HCl (Cyclobenzaprine 5 Mg Tablet) 10 mg PO X1 ONE Stop: 01/12/25 06:34 Last Admin: 01/12/25 06:42 Dose: 10 mg Documented By: BD Ibuprofen (Ibuprofen Tab 400 Mg Tablet) 800 mg PO X1 ONE Stop: 01/12/25 06:34 Last Admin: 01/12/25 06:42 Dose: 800 mg Documented By: BD See MAR Consultations Consultation(s) initiated? (list below): No Diagnosis Most likely diagnosis given after review of the tests above:: Contusion, rib pain, chest wall pain Admission Indicated Admission indicated?: not indicated Admission Request Was there a request for admission?: No Disposition Plan Disposition Plan: Discharge Discharge Attestation Discharge Attestation: The patient and all family members were given an opportunity to ask questions and understood the discharge instructions. Discharge instructions specifically effects, indications for sooner follow up or return to the emergency department, and the expected course of current diagnosis. Patient condition: Stable Discharge Plan Plan Patient Disposition: HOME (Self Care) Patient condition on transfer: Stable Prescriptions/Referrals Prescriptions/Med Rec: New cyclobenzaprine 10 mg tablet 10 mg PO TID PRN (Reason: muscle spasm) Qty: 20 0RF ibuprofen 800 mg tablet 800 mg PO Q6H PRN (Reason: pain) Qty: 14 0RF No Action albuterol sulfate 90 mcg/actuation HFA aerosol inhaler 2 puff IH QID PRN (Reason: shortness of breath or wheezing) Qty: 18 0RF ciprofloxacin HCl 500 mg tablet 500 mg PO BID Qty: 10 0RF metformin 500 mg Tablet 500 mg PO BID amlodipine 10 mg tablet 10 mg PO QDAY Qty: 30 0RF Basaglar KwikPen U-100 Insulin 100 unit/mL (3 mL) insulin pen 7 unit SC QDAY Qty: 15 0RF (DME) blood sugar diagnostic [Blood Glucose Test] Strip See Rx Instructions .ROUTE .MEDSUPPLY Qty: 100 0RF Rx Instructions: As directed check blood sugar times a day (DME) blood-glucose meter [Blood Glucose Monitoring] Kit See Rx Instructions .ROUTE .MEDSUPPLY Qty: 1 0RF Rx Instructions: As directed check blood sugar times a day (DME) pen needle, diabetic [Lite Touch Insulin Pen Bois D Arc] 31 gauge x 1/4 needle See Rx Instructions .ROUTE .MEDSUPPLY Qty: 50 0RF Rx Instructions: As directed (DME) lancets [BD Ultra-Fine II Lancets] 30 gauge misc See Rx Instructions .ROUTE .MEDSUPPLY Qty: 100 0RF Rx Instructions: As directed montelukast [Singulair] 10 mg tablet 10 mg PO QDAY Qty: 30 0RF loratadine 10 mg capsule 10 mg PO QDAY PRN (Reason: allergy symptoms) Qty: 30 0RF famotidine [Pepcid] 40 mg tablet 40 mg PO QDAY Qty: 14 0RF albuterol sulfate [Ventolin HFA] 90 mcg/actuation HFA aerosol inhaler 2 puff inhalation Q6H PRN (Reason: shortness of breath or wheezing) Qty: 8.5 0RF promethazine-DM 6.25-15 mg/5 mL syrup 5 ml PO Q6H PRN (Reason: cough) Qty: 118 0RF Rx Instructions: sugar-free DM, please amoxicillin-pot clavulanate 875-125 mg tablet 1 tab PO BID Qty: 14 0RF cetirizine 10 mg tablet 10 mg PO QDAY Qty: 30 0RF triamcinolone acetonide 0.1 % cream 1 applic topical BID PRN (Reason: itching) Qty: 80 1RF diclofenac sodium 50 mg tablet,delayed release (DR/EC) 50 mg PO Q12H PRN (Reason: pain) Qty: 30 0RF benzonatate 100 mg capsule 100 mg PO TID Qty: 14 0RF ibuprofen 600 mg tablet 600 mg PO Q6H Qty: 30 0RF azithromycin 500 mg tablet See Rx Instructions .ROUTE .COMPLEX Qty: 6 0RF Rx Instructions: take 500 mg today (day 1), then 250 mg for 4 days (days 2-5) albuterol sulfate 90 mcg/actuation aerosol powdr breath activated 2 inh inhalation Q6H PRN (Reason: shortness of breath or wheezing) Qty: 1 0RF Referrals: Abelardo Buchanan PA-C [Primary Care Provider] - In 1 week Problem List Clinical Impression: Pain in rib Patient/Caregiver Discharge Instructions Discharge Activity: activity as tolerated Education Materials: ED Chest Wall Pain, Costochondritis Additional Instructions: Aiden un joseph con [facility]ico de cabecera en las proximas 24-48 horas. Regrese a la kannan de emergencias si hay evidencia de que los signos o sintomas empeoran. Print Language: [place] Timorese Stand Alone Forms: Shahla Award Info., Patient Portal Info Letter PA/DAIRY [employer] Supervising Physician PA/JAY JAY Supervising Physician: karol
[2025-01-12] MEDS: HYDROcodone/APAP 5/325 TABLET 1 TAB PO (08:15)
[2025-01-12 08:21] VITALS: BP 130/74; PULSE 74; RESP 17; TEMP 36.6; O2SAT 94
== END 2025-01-12 08:21 | disposition home or self-care (01) ==
PROVIDERS: Emergency Provider Emergency Medicine; PCP Physician Assistant
DX: R07.81 Pleurodynia (principal); R94.31 Abnormal electrocardiogram [ECG] [EKG]
CPT/HCPCS: 71046; 93005; 99283; A9270

== ENCOUNTER 2025-01-19 22:15 | Emergency (ER) | payer MEDICAID, SELFPAY ==
[2025-01-19 22:16] VITALS: BMI 31.1
--- NOTE | 2025-01-19 22:38 | EDNOTE_ITS ---
ED Allergic Reaction RME/HPI General Chief complaint: Allergic Reaction Stated complaint: ALLERGIES / RASH Time Seen by Provider: 01/19/25 22:22 Source: patient, RN notes reviewed and old records reviewed Arrival date/time: 01/19/25 22:15 Mode of arrival: ambulatory Limitations: no limitations RME / HPI RME / HPI narrative: 54yof presents to ED for hives and itching that initiated today. No new foods, medicines, soaps, detergents or outdoor exposures reported. Patient denies tongue/throat swelling, shortness of breath or vomiting. She does endorse mild nausea. 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 Related Data Home Medications ?Medication ?Instructions ?Recorded ?Confirmed metformin 500 mg tablet 500 mg PO BID 10/02/1910/01 Previous Rx's ?Medication ?Instructions ?Recorded albuterol sulfate 90 mcg/actuation 2 puff inhalation Q ID PRN 09/29/19 aerosol inhaler shortness of breath or wheez ing #18 grams amlodipine 10 mg tablet 10 mg PO QDAY #30 tabs 10/16 blood sugar diagnostic (Blood #100 ea 10/17/19 Glucose Test strips) blood-glucose meter (Blood Glucose #1 ea 10/17/19 Monitoring kit) insulin glargine 100 unit/mL (3 7 unit (0.07 mL) subcu t QDAY #15 mL 10/17/19 mL) subcutaneous pen (Basaglar KwikPen U-100 Insulin) lancets 30 gauge (BD Ultra-Fine II #100 ea 10/17/19 Lancets) pen needle, diabetic 31 gauge x #50 ea 10/17/19 1/ (Lite Touch Insulin [place]) ciprofloxacin HCl 500 mg tablet 500 mg PO BID #10 tabs 11/07/21 diclofenac sodium 50 mg 50 mg PO Q12H PRN pain #30 t abs 11/06/22 tablet,delayed release famotidine 40 mg tablet (Pepcid) 40 mg PO QDAY #14 tab s 02/05/23 loratadine 10 mg capsule 10 mg PO QDAY PRN allergy sy mptoms 02/05/23 #30 caps montelukast 10 mg tablet 10 mg PO QDAY #30 tabs 02/05 (Singulair) albuterol sulfate 90 mcg/actuation 2 puff inhalation Q 6H PRN 12/22/23 aerosol inhaler (Ventolin HFA) shortness of breath or wheezing #8.5 grams amoxicillin 875 mg-potassium 1 tab PO BID #14 tabs 10/08 clavulanate 125 mg tablet promethazine-DM 6.25 mg-15 mg/5 mL 5 ml PO Q6H PRN cou gh #118 mL 12/22/23 oral syrup cetirizine 10 mg tablet 10 mg PO QDAY #30 tabs 06/22 triamcinolone acetonide 0.1 % 1 applic topical BID PRN itching 06/22/24 topical cream #80 grams albuterol sulfate 90 mcg/actuation 2 inh inhalation Q6 H PRN shortness 12/19/24 breath activated powder inhaler of breath or wheezing #1 ea azithromycin 500 mg tablet See Rx Instructions PO .COM PLEX #6 12/19/24 tabs benzonatate 100 mg capsule 100 mg PO TID #14 caps 08/09 ibuprofen 600 mg tablet 600 mg PO Q6H #30 tabs 12/19 cyclobenzaprine 10 mg tablet 10 mg PO TID PRN muscle s pasm #20 01/12/25 tabs ibuprofen 800 mg tablet 800 mg PO Q6H PRN pain #14 t abs 01/12/25 cefdinir 300 mg capsule 300 mg PO BID 5 days #10 cap s 01/19/25 famotidine 40 mg tablet (Pepcid) 40 mg PO QDAY #14 tab s 01/19/25 triamcinolone acetonide 0.1 % 1 applic topical BID PRN 01/19/25 topical cream rash/itching #30 grams Allergies Allergy/AdvReac Type Severity Reaction Status Date / Time ondansetron (From Zofran) Allergy Severe Hives Verified 01/12/25 06:00 Review of Systems Review of Systems Systems Reviewed: All systems reviewed, normal except as documented Constitutional Constitutional: Denies chills and Denies fever(s) Cardiovascular Cardiovascular: Denies dyspnea Respiratory Respiratory: Denies dyspnea Gastrointestinal Gastrointestinal: Denies abdominal pain, Reports nausea and Denies vomiting Genitourinary Genitourinary: Reports dysuria, Denies flank pain and Denies hematuria Integumentary/Breasts Skin/Breast: Reports pruritus and Reports rash Past Medical History Past Medical History GASTROINTESTINAL: Positive Obesity ENDOCRINE: Positive Diabetes Mellitus Type 2 Social History SMOKING STATUS: Never smoker SECOND HAND EXPOSURE: No ED Exam General Limitations: Present no limitations General appearance: Present alert and in no apparent distress Head Head exam: Present atraumatic and normocephalic Eye Eye exam: Present normal appearance, PERRL and EOMI ENT ENT exam: Present normal exam, normal oropharynx (airway patent) and mucous membranes moist Neck Neck exam: Present normal inspection and full ROM Chest Chest inspection: Present normal inspection and symmetric chest wall rise Respiratory Respiratory exam: Present normal lung sounds bilaterally; Absent respiratory distress, wheezes or stridor Cardiovascular Cardiovascular exam: Present normal rhythm and tachycardia Abdominal Exam Abdominal exam: Present soft; Absent distention, tenderness, guarding or rebound Extremities Exam Extremities exam: Present normal inspection and full ROM Back Exam Back exam: Absent CVA tenderness (R) or CVA tenderness (L) Neurological Exam Neurological exam: Present alert and oriented X3 Psychiatric Psychiatric exam: Present normal affect and normal mood Skin Skin exam: Present warm, dry, intact and rash (scattered urticaria) Course Quality Measures none Orders Category Date Time Status UA [Urinalysis] Stat Lab 01/19/25 22:56 Completed Dexamethasone Inj [Decadron Inj] Med 01/19/25 22:39 Discontinued 10 mg IM X1 ONE Famotidine [Pepcid] Med 01/19/25 22:37 Discontinued 40 mg PO X1 ONE MethylPREDNISolone.* [SoluMEDROL Inj] Med 01/19/25 22:37 Discontinued 125 mg IM X1 ONE Metoclopramide [Reglan] Med 01/19/25 22:56 Discontinued 10 mg PO X1 ONE Vital Signs Vital signs: Vital Signs Temperature 98.2 F 01/19/25 22:39 Pulse Rate 120 H 01/19/25 22:39 Respiratory Rate 18 01/19/25 22:39 Blood Pressure 111/70 01/19/25 22:39 Pulse Oximetry (%) 95 01/19/25 22:39 Oxygen Delivery Method Room Air 01/19/25 22:39 Allergic Reaction MDM Narrative MDM Narrative:: 54yof presents to ED for hives and itching that initiated today. No new foods, medicines, soaps, detergents or outdoor exposures reported. Patient denies tongue/throat swelling, shortness of breath or vomiting. She does endorse mild nausea. 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 Patient reassessed. Symptoms improved, hives almost completely resolved after medications administered. Patient is well?appearing, no evidence of airway compromise or respiratory distress. Recommended po Benadryl and topical steroid prn itching. Continue daily Zyrtec. Pepcid prescribed. No oral steroids due to history of poorly controlled diabetes. Encouraged PCP follow-up as needed. Stable for discharge, RTED precautions given. Patient data External records reviewed:: [facility] previous records (01/12/25 ED visit for rib pain) Clinical information provided by:: patient Social determinants that could affect healthcare access:: none Patient has the following chronic illnesses:: DM2, obesity How is presenting disease/condition affected by chronic disease/condition?: exacerbated by Evaluation data The following diagnostics were reviewed and interpreted by me:: lab results Lab and/or radiology exams considered but not ordered:: CT abd/pelvis: Do not suspect pyelo or kidney stone based on history and exam Interpretation Summary: UA: +leuks/bacteria. +glucose,-ketones Medications / Prescriptions Medications or Prescriptions considered but not ordered:: none Medication administrations:: Medication Administration History Discontinued Medications Dexamethasone Sodium Phosphate (Dexamethasone Sod Phos Inj 10 Mg/Ml Vial) 10 mg IM X1 ONE Stop: 01/19/25 22:40 Last Admin: 01/19/25 22:54 Dose: 10 mg Documented By: OA Famotidine (Famotidine 20 Mg Tablet) 40 mg PO X1 ONE Stop: 01/19/25 22:38 Last Admin: 01/19/25 22:54 Dose: 40 mg Documented By: OA Methylprednisolone Sodium Succinate (Methylprednisolone Sod Succ 62.5 Mg/Ml 2ml Vial) 125 mg IM X1 ONE Stop: 01/19/25 22:38 Last Admin: 01/19/25 23:00 Dose: Not Given Documented By: CB Non-Admin Reason: Override Medication Metoclopramide HCl (Metoclopramide 5 Mg Tablet) 10 mg PO X1 ONE Stop: 01/19/25 22:57 Last Admin: 01/19/25 22:59 Dose: 10 mg Documented By: OA above medications administered in ED Consultations Consultation(s) initiated? (list below): No Diagnosis Differential Diagnosis allergic reaction: anaphylaxis, allergic reaction, angioedema, contact dermatitis, adverse reaction to drug and urticaria Most likely diagnosis given after review of the tests above:: urticaria, UTI Admission Indicated Admission indicated?: not indicated Admission Request Was there a request for admission?: No Disposition Plan Disposition Plan: Discharge Discharge Attestation Discharge Attestation: The patient and all family members were given an opportunity to ask questions and understood the discharge instructions. Discharge instructions specifically effects, indications for sooner follow up or return to the emergency department, and the expected course of current diagnosis. Patient condition: Stable Discharge Plan Plan Patient Disposition: HOME (Self Care) Patient condition on transfer: Stable Prescriptions/Referrals Prescriptions/Med Rec: New cefdinir 300 mg capsule 300 mg PO BID 5 Days Qty: 10 0RF triamcinolone acetonide 0.1 % cream 1 applic topical BID PRN (Reason: rash/itching) Qty: 30 0RF famotidine [Pepcid] 40 mg tablet 40 mg PO QDAY Qty: 14 0RF No Action albuterol sulfate 90 mcg/actuation HFA aerosol inhaler 2 puff IH QID PRN (Reason: shortness of breath or wheezing) Qty: 18 0RF ciprofloxacin HCl 500 mg tablet 500 mg PO BID Qty: 10 0RF metformin 500 mg Tablet 500 mg PO BID amlodipine 10 mg tablet 10 mg PO QDAY Qty: 30 0RF Basaglar KwikPen U-100 Insulin 100 unit/mL (3 mL) insulin pen 7 unit SC QDAY Qty: 15 0RF (DME) blood sugar diagnostic [Blood Glucose Test] Strip See Rx Instructions .ROUTE .MEDSUPPLY Qty: 100 0RF Rx Instructions: As directed check blood sugar times a day (DME) blood-glucose meter [Blood Glucose Monitoring] Kit See Rx Instructions .ROUTE .MEDSUPPLY Qty: 1 0RF Rx Instructions: As directed check blood sugar times a day (DME) pen needle, diabetic [Lite Touch Insulin Pen [place]] 31 gauge x 1/4 needle See Rx Instructions .ROUTE .MEDSUPPLY Qty: 50 0RF Rx Instructions: As directed (DME) lancets [BD Ultra-Fine II Lancets] 30 gauge misc See Rx Instructions .ROUTE .MEDSUPPLY Qty: 100 0RF Rx Instructions: As directed montelukast [Singulair] 10 mg tablet 10 mg PO QDAY Qty: 30 0RF loratadine 10 mg capsule 10 mg PO QDAY PRN (Reason: allergy symptoms) Qty: 30 0RF famotidine [Pepcid] 40 mg tablet 40 mg PO QDAY Qty: 14 0RF albuterol sulfate [Ventolin HFA] 90 mcg/actuation HFA aerosol inhaler 2 puff inhalation Q6H PRN (Reason: shortness of breath or wheezing) Qty: 8.5 0RF promethazine-DM 6.25-15 mg/5 mL syrup 5 ml PO Q6H PRN (Reason: cough) Qty: 118 0RF Rx Instructions: sugar-free DM, please amoxicillin-pot clavulanate 875-125 mg tablet 1 tab PO BID Qty: 14 0RF cetirizine 10 mg tablet 10 mg PO QDAY Qty: 30 0RF triamcinolone acetonide 0.1 % cream 1 applic topical BID PRN (Reason: itching) Qty: 80 1RF diclofenac sodium 50 mg tablet,delayed release (DR/EC) 50 mg PO Q12H PRN (Reason: pain) Qty: 30 0RF benzonatate 100 mg capsule 100 mg PO TID Qty: 14 0RF ibuprofen 600 mg tablet 600 mg PO Q6H Qty: 30 0RF azithromycin 500 mg tablet See Rx Instructions .ROUTE .COMPLEX Qty: 6 0RF Rx Instructions: take 500 mg today (day 1), then 250 mg for 4 days (days 2-5) albuterol sulfate 90 mcg/actuation aerosol powdr breath activated 2 inh inhalation Q6H PRN (Reason: shortness of breath or wheezing) Qty: 1 0RF cyclobenzaprine 10 mg tablet 10 mg PO TID PRN (Reason: muscle spasm) Qty: 20 0RF ibuprofen 800 mg tablet 800 mg PO Q6H PRN (Reason: pain) Qty: 14 0RF Referrals: Temporary Provider,ED [Physician, Emergency Medicine] - In 1 week Problem List Clinical Impression: Urticaria, UTI (urinary tract infection) Patient/Caregiver Discharge Instructions Education Materials: Urinary Tract Infections in Women, ED Hives (Adult) Print Language: Wolof Stand Alone Forms: [facility]la Award Info., Patient Portal Info Letter PA/SUSTAINABILITY EXECUTIVE DIRECTOR Supervising Physician PA/SUSTAINABILITY EXECUTIVE DIRECTOR Supervising Physician: Shannon
[2025-01-19 22:39] VITALS: BP 111/70; PULSE 120; RESP 18; TEMP 36.8; O2SAT 95
[2025-01-19] MEDS: DEXAMETHASONE SOD PHOS INJ 10 MG/ML VIAL IM (22:54)
[2025-01-19] MEDS: FAMOTIDINE 20 MG TABLET 40 MG PO (22:54)
[2025-01-19] MEDS: METOCLOPRAMIDE 5 MG TABLET 10 MG PO (22:59)
[2025-01-19 23:04] LABS: Collection Type, Urine Clean Catch
[2025-01-19 23:20] LABS: Bacteria,Urine 4+; Bilirubin,Urine Negative (Negative); Blood,Urine Negative (Negative); Clarity,Urine Clear (Clear/Hazy); Color,Urine Lt-Yellow (Lt Yel-Yel); Glucose, Urine 4+ (Negative); Ketones,Urine Trace (Negative); Leukocyte Esterase,Urine Positive (Negative); Nitrite,Urine Negative (Negative); PH,Urine 6.5 (5.0-7.0); Protein,Urine Trace (Neg - Trace); RBC,Urine 3 /hpf (0-3); Specific Gravity,Urine 1.033 (1.001-1.035); Squamous Epithelial Cell,Urine 1 /hpf (0-5); Urobilinogen,Urine Negative mg/dL (0.0-1.0); WBC,Urine 9 /hpf (0-5)
[2025-01-20 00:01] VITALS: BP 111/80; PULSE 113; RESP 18; O2SAT 95
== END 2025-01-20 00:17 | disposition home or self-care (01) ==
PROVIDERS: Physician Assistant; Emergency Provider Emergency Medicine; PCP Physician Assistant
DX: L50.9 Urticaria, unspecified (principal); N39.0 Urinary tract infection, site not specified
CPT/HCPCS: 81001; 96372; 99283; J1100; A9270

== ENCOUNTER 2025-01-21 07:37 | Inpatient (IN) | payer MEDICAID, SELFPAY ==
[2025-01-21] VITALS (7 sets, daily range): BP systolic 90–109; BP diastolic 54–66; PULSE 89–140; RESP 16–91; TEMP 36.2–40.7; O2SAT 91–98; BMI 28.3
--- NOTE | 2025-01-21 07:40 | EKG_ITS ---
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
--- NOTE | 2025-01-21 07:42 | EDNOTE_ITS ---
ED Fever RME/HPI General Chief Complaint: Fever Stated Complaint: FEVER NAUSEA VOMITING Time Seen by Provider: 01/21/25 07:40 Arrival date/time: 01/21/25 07:37 RME / HPI RME / HPI Narrative: 54 yo female patient with h/o DM c/o fever starting yesterday, then vomiting and generalized weakness starting this morning. Per EMS patient was warm to touch, tachycardic to 130s, and needed assistance getting to the gurney due to weakness. Vomiting x 1 when getting on gurney. BG 549. O2 sat 91% room air, 98% on oxymask. Related Data Home Medications ?Medication ?Instructions ?Recorded ?Confirmed metformin 500 mg tablet 500 mg PO BID 10/02/1910/01 Previous Rx's ?Medication ?Instructions ?Recorded albuterol sulfate 90 mcg/actuation 2 puff inhalation Q ID PRN 09/29/19 aerosol inhaler shortness of breath or wheez ing #18 grams amlodipine 10 mg tablet 10 mg PO QDAY #30 tabs 10/16 blood sugar diagnostic (Blood #100 ea 10/17/19 Glucose Test strips) blood-glucose meter (Blood Glucose #1 ea 10/17/19 Monitoring kit) insulin glargine 100 unit/mL (3 7 unit (0.07 mL) subcu t QDAY #15 mL 10/17/19 mL) subcutaneous pen (Basaglar KwikPen U-100 Insulin) lancets 30 gauge (BD Ultra-Fine II #100 ea 10/17/19 Lancets) pen needle, diabetic 31 gauge x #50 ea 10/17/1904/20 (Lite Touch Insulin Pen [place]) ciprofloxacin HCl 500 mg tablet 500 mg PO BID #10 tabs 11/07/21 diclofenac sodium 50 mg 50 mg PO Q12H PRN pain #30 t abs 11/06/22 tablet,delayed release famotidine 40 mg tablet (Pepcid) 40 mg PO QDAY #14 tab s 02/05/23 loratadine 10 mg capsule 10 mg PO QDAY PRN allergy sy mptoms 02/05/23 #30 caps montelukast 10 mg tablet 10 mg PO QDAY #30 tabs 02/05 (Singulair) albuterol sulfate 90 mcg/actuation 2 puff inhalation Q 6H PRN 12/22/23 aerosol inhaler (Ventolin HFA) shortness of breath or wheezing #8.5 grams amoxicillin 875 mg-potassium 1 tab PO BID #14 tabs 10/08 clavulanate 125 mg tablet promethazine-DM 6.25 mg-15 mg/5 mL 5 ml PO Q6H PRN cou gh #118 mL 12/22/23 oral syrup cetirizine 10 mg tablet 10 mg PO QDAY #30 tabs 06/22 triamcinolone acetonide 0.1 % 1 applic topical BID PRN itching 06/22/24 topical cream #80 grams albuterol sulfate 90 mcg/actuation 2 inh inhalation Q6 H PRN shortness 12/19/24 breath activated powder inhaler of breath or wheezing #1 ea azithromycin 500 mg tablet See Rx Instructions PO .COM PLEX #6 12/19/24 tabs benzonatate 100 mg capsule 100 mg PO TID #14 caps 08/09 ibuprofen 600 mg tablet 600 mg PO Q6H #30 tabs 12/19 cyclobenzaprine 10 mg tablet 10 mg PO TID PRN muscle s pasm #20 01/12/25 tabs ibuprofen 800 mg tablet 800 mg PO Q6H PRN pain #14 t abs 01/12/25 cefdinir 300 mg capsule 300 mg PO BID 5 days #10 cap s 01/19/25 famotidine 40 mg tablet (Pepcid) 40 mg PO QDAY #14 tab s 01/19/25 triamcinolone acetonide 0.1 % 1 applic topical BID PRN 01/19/25 topical cream rash/itching #30 grams Allergies Allergy/AdvReac Type Severity Reaction Status Date / Time ondansetron (From Zofran) Allergy Severe Hives Verified 01/12/25 06:00 Review of Systems Review of Systems Systems Reviewed: All systems reviewed, normal except as documented Past Medical History Past Medical History GASTROINTESTINAL: Positive Obesity ENDOCRINE: Positive Diabetes Mellitus Type 2 Social History SMOKING STATUS: Never smoker SECOND HAND EXPOSURE: No Physical Exam Narrative Physical exam: GENERAL APPEARANCE: alert and oriented x 4 though initially slow to respond to questions, well-developed, well-nourished, mildly diaphoretic HEENT: Normocephalic, atraumatic; pupils equal, round, reactive to light; EOMI; mucous membranes pink, moist; oropharynx clear NECK: Supple LUNGS: CTABL; no wheezes, no rales, no rhonchi HEART: Regular rate, regular rhythm; normal S1, S2; no murmurs ABDOMEN: non distended; normal BS; soft, no tenderness, no guarding, no rebound; no masses, no organomegaly, no hernia BACK: no CVA tenderness EXTREMITIES: atraumatic; no edema NEUROLOGIC: awake; alert and oriented x4 though initially slow to respond to questions; cranial nerves II-XII grossly intact; no focal sensory or motor deficits PSYCHIATRIC: appropriate mood and affect SKIN: Increased warmth, mildly diaphoretic, normal color; no rashes Course Course Course Narrative: Troponin and glucose are elevated, ordered aspirin and insulin. Last urine culture positive for E.coli that was english sensitive. Will give dose of Rocephin for UTI. 1040a: I spoke with hospitalist team B for admission. Quality Measures Current suspected stage: sepsis Possible source: genitourinary Blood cultures ordered: completed in ED Antibiotic ordered: Yes Pertinent labs: 01/21/25 07:56 Lactic Acid 3.5 H mMol/L (0.4-2.0) Procalcitonin 9.67 H ng/ml (0.0-0.49) sepsis Orders Category Date Time Status Admit to Inpatient Status Routine Admission 01/21/25 10:58 Active Patient Condition Routine Admission 01/21/25 10:57 Ordered Bedside Blood Glucose Q1HR Care 01/21/25 07:41 Active Bedside COVID-19 Antigen Test NOW Care 01/21/25 08:43 Active Butadiene Convertor Operator NOW Care 01/21/25 07:40 Active Cooling [place] Application NOW Care 01/21/25 07:48 Active EKG (ED ONLY) *Do not use* NOW Care 01/21/25 07:40 Completed Notify provider NEEDED Care 01/21/25 10:57 Active Strict Intake and Output Routine Care 01/21/25 11:00 Ordered EKG (ED Only) Stat Exams 01/21/25 07:40 Draft XR chest 1V portable Stat Exams 01/21/25 07:40 Completed A1C [Glycohemoglobin w (eAG)] Stat Lab 01/21/25 07:56 Completed ABG [Arterial Blood Gas] Stat Lab 01/21/25 09:29 Completed B-Type Natriuretic Peptide Stat Lab 01/21/25 07:56 Completed Beta Hydroxybutyrate Stat Lab 01/21/25 07:56 Completed Blood Culture (Lab) Stat Lab 01/21/25 07:47 Received CBC AM DRAW Lab 01/22/25 05:00 Ordered CBC AM DRAW Lab 01/23/25 05:00 Ordered CBC AM DRAW Lab 01/24/25 05:00 Ordered CBC Stat Lab 01/21/25 07:56 Completed Comprehensive Metabolic Panel AM DRAW Lab 01/22/25 05:00 Ordered Comprehensive Metabolic Panel AM DRAW Lab 01/23/25 05:00 Ordered Comprehensive Metabolic Panel AM DRAW Lab 01/24/25 05:00 Ordered Comprehensive Metabolic Panel Stat Lab 01/21/25 07:56 Completed Influenza A & B Rapid Panel Stat Lab 01/21/25 08:47 Completed Lactate (Lactic Acid) Stat Lab 01/21/25 07:56 Completed Lipase Stat Lab 01/21/25 07:56 Completed Magnesium AM DRAW Lab 01/22/25 05:00 Ordered Magnesium AM DRAW Lab 01/23/25 05:00 Ordered Magnesium AM DRAW Lab 01/24/25 05:00 Ordered Magnesium Stat Lab 01/21/25 07:56 Completed Partial Thromboplastin Time Stat Lab 01/21/25 07:56 Completed Phosphorous AM DRAW Lab 01/22/25 05:00 Ordered Phosphorous AM DRAW Lab 01/23/25 05:00 Ordered Phosphorous AM DRAW Lab 01/24/25 05:00 Ordered Procalcitonin Stat Lab 01/21/25 07:56 Completed Prothrombin Time with INR Stat Lab 01/21/25 07:56 Completed Troponin I Stat Lab 01/21/25 07:56 Completed UA, C/S IF [Urinalysis, C/S if Indicated] Stat Lab 01/21/25 07:55 Completed Urine Culture Stat Lab 01/21/25 07:55 Received Acetaminophen Ivpb [Ofirmev Inj] Med 01/21/25 07:47 Discontinued 1,000 mg in 100 ml IV X1 Acetaminophen Tab [Tylenol Tab] Med 01/21/25 10:57 Active 650 mg PO Q6H PRN Acetaminophen Tab [Tylenol Tab] Med 01/21/25 10:57 Discontinued 650 mg PO Q6H PRN Aspirin Chew Med 01/21/25 09:35 Discontinued 324 mg PO X1 ONE HYDROcodone/APAP 10/325 [[place] 10/325] Med 01/21/25 10:57 Active 1 tab PO Q6HR PRN Insulin Regular Med 01/21/25 09:36 Discontinued 5 unit IV X1 ONE Metoclopramide [Reglan] Med 01/21/25 10:57 Active 10 mg PO Q6H PRN Senna [Senokot] Med 01/21/25 10:57 Active 1 tab PO BID PRN Sodium Chloride 0.9% 1000 ml [Ns] 1,000 ml Med 01/21/25 07:40 Discontinued IV 999 mls/hr Sodium Chloride 0.9% 1000 ml [Ns] 1,000 ml Med 01/21/25 08:40 Discontinued IV 999 mls/hr cefTRIAXone/D5w 1gm IV premix [Rocephin/D5w 1gm IV Med 01/21/25 10:21 Discontinued premix] 1 gm in 50 ml IV X1 mg Hyd/Al Hyd/Althea Susp [Maalox Susp] Med 01/21/25 10:57 Active 30 ml PO Q6H PRN oxyCODONE/APAP 5/325 [Percocet 5/325] Med 01/21/25 10:57 Active 1 tab PO Q6H PRN Code Status Routine Oth 01/21/25 10:57 Ordered Vital Signs Vital signs: Vital Signs Temperature 105.2 F H 01/21/25 07:50 Pulse Rate 125 H 01/21/25 07:50 Respiratory Rate 24 H 01/21/25 07:50 Blood Pressure 94/55 L 01/21/25 07:50 Pulse Oximetry (%) 96 01/21/25 07:50 Oxygen Delivery Method Nasal Cannula 01/21/25 07:50 Oxygen Flow Rate 3 01/21/25 07:50 Fever MDM Narrative MDM Narrative:: Marcela Alvarez am scribing for and in the presence of Dr. Lawler. Patient data External records reviewed:: [facility] previous records and EMS form Clinical information provided by:: patient and EMS Social determinants that could affect healthcare access:: none Patient has the following chronic illnesses:: DM How is presenting disease/condition affected by chronic disease/condition?: exacerbated by Evaluation data The following diagnostics were reviewed and interpreted by me:: lab results, radiology exam(s) and EKG tracing(s) (EKG @ 07:49 AM. Sinus tachycardia, HR 130, Poor R-wave progression, Q-wave in v3 v4 v5 v6, prior Q-wave in lead III which I don't see on the current EKG, no acute ischemic changes. ) Lab and/or radiology exams considered but not ordered:: None Interpretation Summary: Ordering Physician: Cassandra Lawler MD Date of Service: 01/21/25 Procedure(s): XR chest 1V portable Accession Number(s): [id number] cc: Nish Macias; Mandeep Prabhakar MD; Cassandra Lawler MD~ EXAMINATION: AP chest single view TECHNIQUE: AP portable upright chest single view Date and time: January 21, 2025, 0809 hours, comparison 01/12/2025 INDICATIONS: Cough and fever beginning 3 days ago. FINDINGS: Poor inspiratory effort Mild prominence left ventricle No pneumonia or pulmonary edema IMPRESSION: Poor inspiratory effort chest x-ray Dictated By: Mandeep Prabhakar MD Signed By: <Electronically signed by Mandeep Prabhakar MD in [place]> 01/21/25 1105 Medications / Prescriptions Medications or Prescriptions considered but not ordered:: None Medication administrations:: Medication Administration History Acetaminophen (Acetaminophen 325 Mg Tablet) 650 mg PO Q6H PRN PRN Reason: PAIN SCALE 1-3 (mild Stop: 02/20/25 10:56 Hydrocodone Bitart/Acetaminophen (Hydrocodone/Apap 10/325 Tab) 1 tab PO Q6HR PRN PRN Reason: PAIN SCALE 7-10 (Severe Stop: 01/26/25 10:56 Al Hydrox/Mg Hydrox/Simethicone (Mg Hyd/Al Hyd/[place]thea (Maalox Reg) Susp 30 Ml Udc) 30 ml PO Q6H PRN PRN Reason: Indigestion Stop: 02/20/25 10:56 Dextrose (Dextrose 50%-Water Inj 50 Ml Syringe) 25 ml IV Q15MIN PRN PRN Reason: BG 50-70 responsive npo pt Stop: 02/20/25 11:03 Dextrose (Dextrose 50%-Water Inj 50 Ml Syringe) 50 ml IV Q15MIN PRN PRN Reason: BG <50 OR BG <70 & pt unresponsive Stop: 02/20/25 11:03 Enoxaparin Sodium (Enoxaparin Sod Inj 40 Mg/0.4 Ml Syringe) 40 mg SC QDAY BOBBY Stop: 02/05/25 08:59 Gabapentin (Gabapentin 100 Mg Capsule) 100 mg PO QDAY [facility] Stop: 02/20/25 11:29 Last Admin: 01/21/25 12:02 Dose: 100 mg Documented By: NEEMA Glucagon (Glucagon Inj 1 Mg Vial) 1 mg IM Q15MIN PRN PRN Reason: BG <70, and no IV access Magnesium Sulfate (Magnesium Sulfate Ivpb) 4 gm in 50 mls @ 12.5 mls/hr IV X1 ONE Stop: 01/21/25 15:37 Last Admin: 01/21/25 12:02 Dose: 12.5 mls/hr Documented By: NEEMA Ceftriaxone Sodium/Dextrose (Rocephin/D5w 1gm Iv Premix) 1 gm in 50 mls @ 100 mls/hr IV QDAY [facility] Stop: 01/29/25 08:59 Insulin Degludec (Insulin Degludec 5 Unit/0.05 Ml (Per 5 Units)) 5 unit SC QDAY [facility] Stop: 02/20/25 11:59 Insulin Human Lispro (Insulin Lispro (Admelog) 1 Unit/0.01 Ml Unit) 0 unit SC ACHS [facility]; Protocol Stop: 02/20/25 11:29 Metoclopramide HCl (Metoclopramide 5 Mg Tablet) 10 mg PO Q6H PRN PRN Reason: NAUSEA OR VOMITING Stop: 02/20/25 10:56 Oxycodone/Acetaminophen (Oxycodone/Apap 5/325 Tablet) 1 tab PO Q6H PRN PRN Reason: PAIN SCALE 4-6 (Moderate Stop: 01/26/25 10:56 Sennosides (Senna Tablet) 1 tab PO BID PRN; Protocol PRN Reason: CONSTIPATION Stop: 02/20/25 10:56 Discontinued Medications Acetaminophen (Acetaminophen 325 Mg Tablet) 650 mg PO Q6H PRN PRN Reason: Fever >101.5 Stop: 02/20/25 10:56 Aspirin (Aspirin 81 Mg Chew) 324 mg PO X1 ONE Stop: 01/21/25 09:36 Last Admin: 01/21/25 09:53 Dose: 324 mg Documented By: SHAYE Sodium Chloride (Ns) 1,000 mls @ 999 mls/hr IV .Q1H1M ONE Stop: 01/21/25 08:40 Last Infusion: 01/21/25 08:55 Dose: Infused Documented By: Admin: 01/21/25 07:54 Dose: 999 mls/hr Documented By: ZACH Acetaminophen (Ofirmev Inj) 1,000 mg in 100 mls @ 250 mls/hr IV X1 ONE Stop: 01/21/25 08:10 Last Infusion: 01/21/25 08:40 Dose: Infused Documented By: Admin: 01/21/25 07:54 Dose: 250 mls/hr Documented By: ZACH Sodium Chloride (Ns) 1,000 mls @ 999 mls/hr IV .Q1H1M ONE Stop: 01/21/25 09:40 Last Infusion: 01/21/25 09:58 Dose: Infused Documented By: Admin: 01/21/25 09:10 Dose: 999 mls/hr Documented By: NEEMA Ceftriaxone Sodium/Dextrose (Rocephin/D5w 1gm Iv Premix) 1 gm in 50 mls @ 100 mls/hr IV X1 ONE Stop: 01/21/25 10:50 Last Infusion: 01/21/25 11:24 Dose: Infused Documented By: Admin: 01/21/25 10:29 Dose: 100 mls/hr Documented By: NEEMA Ceftriaxone Sodium/Dextrose (Rocephin/D5w 1gm Iv Premix) 1 gm in 50 mls @ 100 mls/hr IV QDAY BOBBY Stop: 01/28/25 11:45 Sodium Chloride (Ns) 1,000 mls @ 999 mls/hr IV .Q1H1M ONE Stop: 01/21/25 11:00 Last Infusion: 01/21/25 11:00 Dose: Infused Documented By: Admin: 01/21/25 10:00 Dose: 999 mls/hr Documented By: ZACH Insulin Human Regular (Insulin Hum Regular 1 Unit/0.01 Ml (Per Unit)) 5 unit IV X1 ONE Stop: 01/21/25 09:37 Last Admin: 01/21/25 09:51 Dose: 5 unit Documented By: SHAYE Co-signed By: ZACH Insulin Human Regular (Insulin Hum Regular 1 Unit/0.01 Ml (Per Unit)) 10 unit IV X1 ONE Stop: 01/21/25 11:38 Potassium Chloride (Potassium Chloride 20 Meq Tabcr) 40 meq PO X1 ONE Stop: 01/21/25 11:38 Last Admin: 01/21/25 12:02 Dose: 40 meq Documented By: WL See above Consultations Consultation(s) initiated? (list below): Yes Consultation #1 (Physician, Specialty, Details): See course Diagnosis Fever Differential Diagnosis: cellulitis, fever of unknown origin, gastroent eritis, community acquired pneumonia, viral infection, sepsis and influenza Most likely diagnosis given after review of the tests above:: Severe sepsis UTI Admission Indicated Admission indicated?: indicated Admission Request Was there a request for admission?: Yes Admission Attestation Admission request attestation: Discussed case with [] from Hospitalist service regarding admission. Discussed patients ED course, exam findings, labs, and radiology results. The Hospitalist [agrees,declines] to accept the patient for admission. Disposition Plan Disposition Plan: Admit Discharge Plan Plan Patient Disposition: Admit Acute Care w/in Hospital Problem List Clinical Impression: Severe sepsis, UTI (urinary tract infection)
[2025-01-21] MEDS: SODIUM CHLORIDE 0.9% 1000 ML 1,000 ML 999 ML IV ×3 (07:54→10:00)
[2025-01-21] MEDS: ACETAMINOPHEN IVPB 1,000 MG/100 ML VIAL 250 MG IV (07:54)
[2025-01-21 08:06] LABS: Lactate (Lactic Acid) 3.5 mMol/L (0.4-2.0)
[2025-01-21 08:07] LABS: Collection Type, Urine Catheter
[2025-01-21 08:13] LABS: Beta Hydroxybutyrate 1.5 mmol/L (<0.6)
[2025-01-21 08:21] LABS: Glucose Estimated Average 312 mg/dL (80-131); Hemoglobin A1C 12.5 % Hgb (4.8-6.0)
[2025-01-21 08:26] LABS: B-Type Natriuretic Peptide 50 pg/mL (0-100); Basophils # (Auto) 0.0 Thou/mm3 (0.0-0.2); Basophils % (Auto) 0 % (0-2.5); Eosinophils # (Auto) 0.0 Thou/mm3 (0.0-0.5); Eosinophils % (Auto) 0 % (0-10); Hematocrit 40.2 % (36.0-46.0); Hemoglobin 13.5 g/dL (12.0-16.0); Immature Granulocytes Auto 0.04 Thou/mm3 (0.00-0.00); Lymphocytes # (Auto) 0.4 Thou/mm3 (1.0-4.8); Lymphocytes % (Auto) 6 % (10-50); Mean Corpuscular HGB Conc 33.6 g/dl (31.0-37.0); Mean Corpuscular Hemoglobin 29.2 pg (25.0-35.0); Mean Corpuscular Volume 87 fL (80-100); Monocytes # (Auto) 0.1 Thou/mm3 (0.0-0.8); Monocytes % (Auto) 1 % (0-12); Neutrophils # (Auto) 6.4 Thou/mm3 (1.8-7.7); Neutrophils % (Auto) 92 % (37-80); Nucleated Red Blood Cell # 0.00 Thou/mm3 (0.00-0.00); Nucleated Red Blood Cell % 0 /100 WBC (0); Platelet Count 169 Thou/mm3 (140-440); RDW Standard Deviation 40.4 fL (36.4-46.3); Red Blood Count 4.63 Miln/mm3 (4.00-5.20); White Blood Count 6.9 Thou/mm3 (3.6-11.0)
[2025-01-21 08:43] LABS: Bacteria,Urine Rare; Bilirubin,Urine Negative (Negative); Blood,Urine 1+ (Negative); Clarity,Urine Turbid (Clear/Hazy); Color,Urine Lt-Yellow (Lt Yel-Yel); Glucose, Urine 4+ (Negative); Ketones,Urine 1+ (Negative); Leukocyte Esterase,Urine Positive (Negative); Nitrite,Urine Negative (Negative); PH,Urine 6.0 (5.0-7.0); Protein,Urine 1+ (Neg - Trace); RBC,Urine 12 /hpf (0-3); Specific Gravity,Urine 1.028 (1.001-1.035); Squamous Epithelial Cell,Urine 8 /hpf (0-5); Urobilinogen,Urine Negative mg/dL (0.0-1.0); WBC,Urine 305 /hpf (0-5)
[2025-01-21 08:47] LABS: Alanine Aminotransferase 29 U/L (10-49); Albumin, Serum 3.8 gm/dL (3.5-5.0); Albumin/Globulin Ratio 1.2 (1.2-2.2); Alkaline Phosphatase 208 U/L (46-116); Anion Gap 14 (7-16); Aspartate Amino Transferase 24 U/L (0-34); BUN/Creatinine Ratio 20 Ratio (12-20); Bilirubin,Total 0.6 mg/dL (0.3-1.2); Blood Urea Nitrogen 20 mg/dL (9-23); Calcium 8.9 mg/dL (8.3-10.6); Calcium (Corrected) 9.1 mg/dL (8.5-10.1); Carbon Dioxide 22.4 mMol/L (20.0-31.0); Chloride 97 mMol/L (98-107); Creatinine (Component) 1.0 mg/dL (0.6-1.3); Estimated Creatinine Clearance 64.5 mL/min (>60); Globulin 3.1 gm/dL (2.3-3.5); Lipase 24 U/L (12-53); Magnesium 1.9 mg/dL (1.6-2.6); Osmolality,Calculated 294 (275-295); Potassium 4.3 mMol/L (3.4-5.1); Procalcitonin 9.67 ng/ml (0.0-0.49); Sodium 133 mMol/L (136-145); Total Protein 6.9 gm/dL (5.7-8.2); eGFR > 60 See Note
[2025-01-21 08:49] LABS: INR 1.1 (0.9-1.3); Partial Thromboplastin Time 23.9 Seconds (22.0-36.0); Prothrombin Time 11.9 Seconds (9.0-12.2)
[2025-01-21 08:55] LABS: Glucose 565 mg/dL (74-106); Troponin I 0.206 ng/mL (0.0-0.045)
[2025-01-21 08:58] LABS: Culture Indicated,Urine Yes
[2025-01-21 09:24] LABS: Influenza A Ag Negative; Influenza B Ag Negative
[2025-01-21 09:36] LABS: Base Excess -3 (-3-3); HCO3 22 mEq/L (20-26); Inspired Oxygen, FIO2 21 %; O2 Saturation 97 % (91-98); PCO2 39 mmHg (32.0-48.0); PO2 84 mmHg (83-108); pH, Arterial 7.37 (7.35-7.45)
[2025-01-21 09:37] LABS: Allen Test Not Performed; Puncture Site Left Radial
[2025-01-21] MEDS: INSULIN HUM REGULAR 1 UNIT/0.01 ML (PER UNIT) 5 UNIT IV (09:51)
[2025-01-21] MEDS: ASPIRIN 81 MG CHEW 324 MG PO (09:53)
[2025-01-21] MEDS: cefTRIAXone/D5w 1gm IV premix 1 GM/50 ML BAG IV (10:29)
[2025-01-21 11:02] LABS: Reflex Lactate? Y
--- NOTE | 2025-01-21 11:22 | PD.RESHP ---
Documentation for date of: 01/21/25 HPI History of Present Illness History of present illness: History of Present Illness: 54 year old female with PMH of T2DM, pneumonia, UTI, and covid-19 infection in 2019, presented to the hospital on 01/21/2025 due to fever. The fever began 2 days ago and has been fluctuating since onset. Associated symptoms include chills and rigors, dry cough, numbness and tingling of fingers and feet, burning sensation with urination and headache. According to the patient's daughter, the patient was minimally responsive this morning, with high-grade fever, generalized weakness, and multiple episodes of vomiting. The daughter also reported that the patient was covered in vomitus at the time. According to the patient, she uses 60 units of long insulin and 12 units of regular insulin. Finger blood glucose level ranges around 200. At the time of examination, patient still had distal extremity numbness and tingling, generalized abdominal pain, fever and headache. Denies chest pain, palpation, SOB, N/V, chills. Admitted for management of sepsis. ED course: -Vitals: BP 94/55, MT 126, RR 24, Temp 105.2F O2 sat 96% NC on 3 L. -Labs: WBC 6.9 ABG pH 7.37 sodium 133, K4.3, AG 14, glucose 565, lactic acid 3.5, ALP 208, troponin 0.206, beta hydroxybutyrate 1.5, procalcitonin is 9.67. -UA(01/21/2025): Turbid Yellow urine, Protein:1+, Glucose 4+, Ketones: 1+, Blood 1+, Nitrate negative, Urine RBC: 12, Urine WBC:305, Urine Bacteria: Rare -EKG(01/21/2025): Sinus tachycardia -CXR(01/21/2025): Poor inspiratory effort, Mild prominence left ventricle, No pneumonia or pulmonary edema. In ED patient received, Ceftriaxone 1g IV x1, Aspirin 324 mg PO x1, IVF bolus NS 1L x2, Regular insulin 5 units IV x1, Medical history: As stated above Surgical history: Ovarian Tubal ligation Allergies: Ondansteron cauing rash Medications: Pending official med rec Family history: Noncontributory Social history: Denies smoking cigarettes, drinking alcohol or using other illicit drugs Review of Systems Review of Systems Narrative Review of Systems: All 12 systems assessed and the patient denies unless otherwise stated in HPI Exam Vital Signs Temp Pulse Resp BP Pulse Ox O2 Del Method O2 Flow Rate 97.8 F 104 H 16 90/54 L 98 Nasal Cannula 2 01/21/25 10:30 01/21/25 10:30 01/21/25 10:30 01/21/25 10:30 01/21/25 10:30 01/21/25 10:30 01/21/25 10:30 Narrative Exam General: AAO x3, Frail, stressed Eye: PERRL, EOMI, normal conjunctiva, no scleral icterus HENT: Normocephalic, atraumatic, hearing intact to conversation at normal volume, moist oral mucosa Neck: Supple, non-tender, no JVD, no lymphadenopathy Lungs: Non-labored respirations, symmetric chest rise, Clear to auscultate bilaterally, No wheezing, rhonchi, crackles Heart: Peripheral pulses intact bilaterally, Regular Rate and Rhythm. Abdomen: Soft, non-distended, no palpable masses, Generalized abdomen tenderness on palpation Musculoskeletal: Normal range of motion and strength, No cyanosis or edema, No visible joint swelling Skin: Skin is warm, dry, no rashes or lesions. Psychiatric: Cooperative, appropriate mood and affect, Awake and alert, not agitated Neuro: Cranial nerves II-XII grossly intact. Strength 3/5 throughout. Sensations intact to light touch. Results: Labs 01/21/25 07:56 01/21/25 07:56 Labs: Short CBC 01/21/25 Range/Units 07:56 WBC 6.9 (3.6-11.0) Thou/mm3 Hgb 13.5 (12.0-16.0) g/dL Hct 40.2 (36.0-46.0) % Plt Count 169 (140-440) Thou/mm3 BMP 01/21/25 07:56 Sodium 133 L Potassium 4.3 Chloride 97 L Carbon Dioxide 22.4 BUN 20 Creatinine 1.0 Glucose 565 H* Calcium 8.9 Cardiac Enzymes 01/21/25 Range/Units 07:56 Troponin I 0.206 H* (0.0-0.045) ng/mL Liver Function 01/21/25 Range/Units 07:56 Total Bilirubin 0.6 (0.3-1.2) mg/dL AST 24 (0-34) U/L ALT 29 (10-49) U/L Alkaline Phosphatase 208 H (46-116) U/L Albumin 3.8 (3.5-5.0) gm/dL Urine 01/21/25 Range/Units 07:55 Urine Color Lt-Yellow (Lt Yel-Yel) Urine Clarity Turbid A (Clear/Hazy) Urine pH 6.0 (5.0-7.0) Ur Specific [place] 1.028 (1.001-1.035) Urine Protein 1+ A (Neg - Trace) Urine Glucose (UA) 4+ A (Negative) ABG Interpretation ABG results: 01/21/25 09:29 ABG pH 7.37 ABG pCO2 39 ABG pO2 84 ABG HCO3 22 ABG O2 Saturation 97 ABG Base Excess -3 Quality Measures Quality Measures none Medications Home Medications and Allergies Home Medications ?Medication ?Instructions ?Recorded ?Confirmed ?Type metformin 500 mg tablet 1,000 mg PO BID diabetes 10/02/19 01/21/25 History empagliflozin 25 mg tablet 25 mg PO QAM 01/21/25 01/21/25 History (Jardiance) ibuprofen 600 mg tablet 600 mg PO Q6H PRN fever or pain 01/21/25 01/21/25 History insulin glargine 100 unit/mL (3 60 unit subcut HS 01/21/25 01/21/25 History mL) subcutaneous pen (Basaglar KwikPen U-100 Insulin) insulin lispro 100 unit/mL 12 unit subcut BID 01/21/25 01/21/25 History subcutaneous pen (Humalog KwikPen (U-100) Insulin) omeprazole 20 mg tablet,delayed 20 mg PO QDAY 01/21/25 01/21/25 History release oxycodone 5 mg tablet 5 mg PO Q6H PRN pain 01/21/25 01/21/25 History Allergies Allergy/AdvReac Type Severity Reaction Status Date / Time ondansetron (From Zofran) Allergy Severe Hives Verified 01/12/25 06:00 Visit Medications Acetaminophen (Acetaminophen 325 Mg Tablet) 650 mg PO Q6H PRN PRN Reason: Fever >101.5 Stop: 02/20/25 10:56 Acetaminophen (Acetaminophen 325 Mg Tablet) 650 mg PO Q6H PRN PRN Reason: PAIN SCALE 1-3 (mild Stop: 02/20/25 10:56 Hydrocodone Bitart/Acetaminophen (Hydrocodone/Apap 10/325 Tab) 1 tab PO Q6HR PRN PRN Reason: PAIN SCALE 7-10 (Severe Stop: 01/26/25 10:56 Al Hydrox/Mg Hydrox/Simethicone (Mg Hyd/Al Hyd/Althea (Maalox Reg) Susp 30 Ml Udc) 30 ml PO Q6H PRN PRN Reason: Indigestion Stop: 02/20/25 10:56 Dextrose (Dextrose 50%-Water Inj 50 Ml Syringe) 25 ml IV Q15MIN PRN PRN Reason: BG 50-70 responsive npo pt Stop: 02/20/25 11:03 Dextrose (Dextrose 50%-Water Inj 50 Ml Syringe) 50 ml IV Q15MIN PRN PRN Reason: BG <50 OR BG <70 & pt unresponsive Stop: 02/20/25 11:03 Enoxaparin Sodium (Enoxaparin Sod Inj 40 Mg/0.4 Ml Syringe) 40 mg SC QDAY [facility] Stop: 02/05/25 08:59 Glucagon (Glucagon Inj 1 Mg Vial) 1 mg IM Q15MIN PRN PRN Reason: BG <70, and no IV access Insulin Human Lispro (Insulin Lispro (Admelog) 1 Unit/0.01 Ml Unit) 0 unit SC [facility]; Protocol Stop: 02/20/25 11:29 Metoclopramide HCl (Metoclopramide 5 Mg Tablet) 10 mg PO Q6H PRN PRN Reason: NAUSEA OR VOMITING Stop: 02/20/25 10:56 Oxycodone/Acetaminophen (Oxycodone/Apap 5/325 Tablet) 1 tab PO Q6H PRN PRN Reason: PAIN SCALE 4-6 (Moderate Stop: 01/26/25 10:56 Sennosides (Senna Tablet) 1 tab PO BID PRN; Protocol PRN Reason: CONSTIPATION Stop: 02/20/25 10:56 Discontinued Medications Aspirin (Aspirin 81 Mg Chew) 324 mg PO X1 ONE Stop: 01/21/25 09:36 Last Admin: 01/21/25 09:53 Dose: 324 mg Sodium Chloride (Ns) 1,000 mls @ 999 mls/hr IV .Q1H1M ONE Stop: 01/21/25 08:40 Last Infusion: 01/21/25 08:55 Dose: Infused Acetaminophen (Ofirmev Inj) 1,000 mg in 100 mls @ 250 mls/hr IV X1 ONE Stop: 01/21/25 08:10 Last Infusion: 01/21/25 08:40 Dose: Infused Sodium Chloride (Ns) 1,000 mls @ 999 mls/hr IV .Q1H1M ONE Stop: 01/21/25 09:40 Last Infusion: 01/21/25 09:58 Dose: Infused Ceftriaxone Sodium/Dextrose (Rocephin/D5w 1gm Iv Premix) 1 gm in 50 mls @ 100 mls/hr IV X1 ONE Stop: 01/21/25 10:50 Last Admin: 01/21/25 10:29 Dose: 100 mls/hr Insulin Human Regular (Insulin Hum Regular 1 Unit/0.01 Ml (Per Unit)) 5 unit IV X1 ONE Stop: 01/21/25 09:37 Last Admin: 01/21/25 09:51 Dose: 5 unit Assessment & Plan Plan 54 year old female with PMH of T2DM, pneumonia, UTI, and covid-19 infection in 2019, presented to the hospital on 01/21/2025 due to fever. Admitted for management of sepsis and HHS. #Sepsis #2/2 Complicated UTI -History of recurrent UTI. -CXR(01/21/2025): Poor inspiratory effort, Mild prominence left ventricle, No pneumonia or pulmonary edema -UA(01/21/2025): Turbid Yellow urine, Protein:1+, Glucose 4+, Ketones: 1+, Blood 1+, Nitrate negative, Urine RBC: 12, Urine WBC:305, Urine Bacteria: Rare -Past Urine Culture (04/05/2023) showed E.coli ,sensitive to Ceftriaxone -Clinical picture meets 3/4 SIRS criteria: T 105.4 (>100.4 or <96.8F), RR 24 (>20/min), HR 126 (>90/min), WBC 6.9 (>12 or <4K or Bands >10%). LA 3.5 (>2), and UTI as a source of infection =Severe Sepsis -On admission, Procalcitonin level of 9.67 Plan: - On Ceftriaxone 1g IV (01/21-) - Follow-up on blood and urine cultures a.m. - Daily labs BMP, CBC, and electrolytes - Pending BC and UC #Hyperosmolar Hyperglycemic State #Diabetic Ketoacidosis (Mild/Evolving) #Insulin Dependent Type 2 Diabetes -On admission, Glucose level of 565, But no significant acidosis (pH 7.37, AG 14). Mild ketosis (beta hydroxybutyrate 1.5) -Exhibited Mental Status changes, per patient's daughter this morning before coming to the hospital. -Likely precipitated by infection. -Overlap with DKA is possible, but pH and AG argue against full DKA. -Per patient, she takes 60 units of Insulin Degludec and 12 units of Regular insulin, Metformin, and another medication that patient can't remember. -HbA1c (01/21/2025): 12.5 -Upon admission, Given 10 units of Regular Insulin x1. -Bedside Glucose level currently downtrending. Currently 291. -On admission, Patient's potassium: 4.3 Plan: -Continue LR 100ml/hr IVF 1L. -On Insulin Sliding Scale. -Started on Insulin Degludec 15 units qd -Bedside Glucose check ACHS. -Monitor electrolytes, glucose and insulin requirements tomorrow, will adjust accordingly -Med rec pending. #Diabetic neuralgia -Lingering numbness and tingling sensation in patient's fingers and feet -Gabapentin 100mg PO qd #Troponemia -On admission, Troponin 0.206. Repeat Troponin 0.094. -Likely type 2 demand ischemia secondary to sepsis, tachycardia, and hypotension Plan: -Will continue to monitor Troponin level. #Transaminitis -ALP 208 -Likely secondary to sepsis. Plan: -Will continue to monitor. Disposition: Tele med for sepsis and troponemia Diet: Low carb consistent diet GI prophylaxis: Maalox DVT prophylaxis: Enoxaprin Code: FULL Assessment and plan discussed with my attending physicianDr. Kenneth Alfaro (PGY-1) - Internal medicine resident Attending Provider Attestation/Addendum I attest that I was physically present for the evaluation, physical examination, lab and imaging review of the patient with the residents. I discussed the case with the residents and agree with the findings and plans of care as documented above. After examination of the patient and review of the clinical data I feel that this patient needs admission to the hospital for further treatment/evaluation. Maribel Cooper MD
--- NOTE | 2025-01-21 11:30 | PC.NURSE ---
Dr. Cooper at bedside. notified and acknowledged pts bp. BP currently 90's/50's after 3L bolus of NS.
[2025-01-21 11:47] LABS: Lactic Acid, 3 HR 3.1 mMol/L (0.4-2.0)
[2025-01-21] MEDS: GABAPENTIN 100 MG CAPSULE PO (12:02)
[2025-01-21] MEDS: Magnesium Sulfate 4 GM Ivpb 4 GM/50 ML BAG IV (12:02)
[2025-01-21 12:09] LABS: Troponin I 0.094 ng/mL (0.0-0.045)
[2025-01-21] MEDS: INSULIN DEGLUDEC 5 UNIT/0.05 ML (PER 5 UNITS) SC (12:30)
[2025-01-21] MEDS: INSULIN LISPRO (AdmeLOG) 1 UNIT/0.01 ML UNIT SC ×3 (12:31→21:31)
[2025-01-21] MEDS: INSULIN HUM REGULAR 1 UNIT/0.01 ML (PER UNIT) 10 UNIT IV (12:32)
--- NOTE | 2025-01-21 13:41 | PC.NURSE ---
Pt had episode of emesis, she stated that she felt sick to her stomach after taking potassium medication. I contacted Dr. Cooper regarding reglan route is po and pt is having a hard time taking anything by mouth. He stated he will order IV form.
[2025-01-21] MEDS: METOCLOPRAMIDE INJ 5 MG/ML VIAL 2 ML 10 MG IVP (13:51)
[2025-01-21] MEDS: RINGERS LACTATED 1000 ML 1,000 ML 100 ML IV (13:51)
--- NOTE | 2025-01-21 15:30 | PC.NURSE ---
Handoff report given to Gloria BEAN from M/S. Patient is aware of admission to floor. Gwen patient is stable, VSS. All belongings gathered and sent with patient.
[2025-01-21] MEDS: INSULIN DEGLUDEC 5 UNIT/0.05 ML (PER 5 UNITS) 10 UNIT SC (15:47)
[2025-01-21 21:26] LABS: Troponin I 0.048 ng/mL (0.0-0.045)
[2025-01-22] VITALS (7 sets, daily range): BP systolic 101–144; BP diastolic 59–74; PULSE 89–112; RESP 14–24; TEMP 36.3–36.9; O2SAT 92–96
[2025-01-22 06:05] LABS: Basophils # (Auto) 0.0 Thou/mm3 (0.0-0.2); Basophils % (Auto) 0 % (0-2.5); Eosinophils # (Auto) 0.1 Thou/mm3 (0.0-0.5); Eosinophils % (Auto) 1 % (0-10); Hematocrit 30.6 % (36.0-46.0); Hemoglobin 10.2 g/dL (12.0-16.0); Immature Granulocytes Auto 0.06 Thou/mm3 (0.00-0.00); Lymphocytes # (Auto) 1.0 Thou/mm3 (1.0-4.8); Lymphocytes % (Auto) 9 % (10-50); Mean Corpuscular HGB Conc 33.3 g/dl (31.0-37.0); Mean Corpuscular Hemoglobin 29.7 pg (25.0-35.0); Mean Corpuscular Volume 89 fL (80-100); Monocytes # (Auto) 0.7 Thou/mm3 (0.0-0.8); Monocytes % (Auto) 6 % (0-12); Neutrophils # (Auto) 9.3 Thou/mm3 (1.8-7.7); Neutrophils % (Auto) 84 % (37-80); Nucleated Red Blood Cell # 0.00 Thou/mm3 (0.00-0.00); Nucleated Red Blood Cell % 0 /100 WBC (0); Platelet Count 158 Thou/mm3 (140-440); RDW Standard Deviation 42.8 fL (36.4-46.3); Red Blood Count 3.44 Miln/mm3 (4.00-5.20); White Blood Count 11.1 Thou/mm3 (3.6-11.0)
[2025-01-22 06:35] LABS: Alanine Aminotransferase 26 U/L (10-49); Albumin, Serum 3.1 gm/dL (3.5-5.0); Albumin/Globulin Ratio 1.2 (1.2-2.2); Alkaline Phosphatase 90 U/L (46-116); Anion Gap 8 (7-16); Aspartate Amino Transferase 23 U/L (0-34); BUN/Creatinine Ratio 24 Ratio (12-20); Bilirubin,Total 0.4 mg/dL (0.3-1.2); Blood Urea Nitrogen 12 mg/dL (9-23); Calcium 8.0 mg/dL (8.3-10.6); Calcium (Corrected) 8.7 mg/dL (8.5-10.1); Carbon Dioxide 26.1 mMol/L (20.0-31.0); Chloride 103 mMol/L (98-107); Creatinine (Component) 0.5 mg/dL (0.6-1.3); Estimated Creatinine Clearance 131.3 mL/min (>60); Globulin 2.5 gm/dL (2.3-3.5); Glucose 245 mg/dL (74-106); Magnesium 2.1 mg/dL (1.6-2.6); Osmolality,Calculated 281 (275-295); Phosphorous 1.7 mg/dL (2.4-5.1); Potassium 3.7 mMol/L (3.4-5.1); Sodium 137 mMol/L (136-145); Total Protein 5.6 gm/dL (5.7-8.2); eGFR > 60 See Note
[2025-01-22] MEDS: INSULIN LISPRO (AdmeLOG) 1 UNIT/0.01 ML UNIT SC ×4 (07:42→20:28)
[2025-01-22] MEDS: cefTRIAXone/D5w 1gm IV premix 1 GM/50 ML BAG IV (08:25)
[2025-01-22] MEDS: ACETAMINOPHEN 325 MG TABLET 650 MG PO ×2 (08:29→17:54)
[2025-01-22] MEDS: ENOXAPARIN SOD INJ 40 MG/0.4 ML SYRINGE SC (08:29)
[2025-01-22] MEDS: GABAPENTIN 100 MG CAPSULE PO (08:29)
[2025-01-22] MEDS: INSULIN DEGLUDEC 5 UNIT/0.05 ML (PER 5 UNITS) 25 UNIT SC (08:33)
--- NOTE | 2025-01-22 08:50 | PC.SS ---
Follow up note: Waiting for cultures. On IV antibiotic.
[2025-01-22] MEDS: RINGERS LACTATED 1000 ML 1,000 ML 100 ML IV (08:54)
--- NOTE | 2025-01-22 11:22 | ESPR_ITS ---
<Statement entered by Tate Novak MD - 01/22/25 18:30> Patient seen and assessed in hospital bed, denies having any concerning symptoms at this time. Labs with elevation in white blood cell and hemoglobin also down trended from 13.5-10.2. Patient's troponins peaked and down trended likely NSTEMI type II in the setting of GNR bacteremia/UTI and sepsis. Patient's blood sugars remain elevated; moreover, will amplify insulin regimen and continue monitoring closely. Will follow-up on culture results and continue IV antibiotic regimen and expect discharge within the next 24 to 48 hours. I have personally seen and examined the patient. I agree with the resident's assessment and plan as documented below. Tate Novak, DO PGY-2 Internal Medicine - [facility] Documentation for date of: 01/22/25 Subjective Subjective Interval history: Patient did not have any episodes of fever overnight. Patient's WBC count increased to 11.2 from 6.9. Blood culture grew GNR x 1. Increased IV ceftriaxone to 2 g. Troponin has down trended to 0.048 from 0.094. Patient's bedside glucose level was 242 this morning despite giving 42 units of insulin for the past 24 hours. Total daily insulin dose increased to 49 units, comprising 25 units of insulin degludec and 8 units of premeal insulin lispro. Patient's UTI likely due to Jardiance. Patient will need to change the medication dose or discontinue it. She still has generalized abdominal pain. Denies chest pain, palpation, SOB, N/V, fevers or chills. Exam Vital Signs Temp Pulse Resp BP Pulse Ox O2 Del Method O2 Flow Rate 97.9 F 103 H 19 101/61 95 Nasal Cannula 2 01/22/25 08:00 01/22/25 08:00 01/22/25 08:00 01/22/25 08:00 01/22/25 08:00 01/22/25 08:00 01/22/25 08:00 Narrative Exam General: AAO x3, Frail, stressed Eye: PERRL, EOMI, normal conjunctiva, no scleral icterus HENT: Normocephalic, atraumatic, hearing intact to conversation at normal volume, moist oral mucosa Neck: Supple, non-tender, no JVD, no lymphadenopathy Lungs: Non-labored respirations, symmetric chest rise, Clear to auscultate bilaterally, No wheezing, rhonchi, crackles Heart: Peripheral pulses intact bilaterally, Regular Rate and Rhythm. Abdomen: Soft, non-distended, no palpable masses, Generalized abdomen tenderness on palpation Musculoskeletal: Normal range of motion and strength, No cyanosis or edema, No visible joint swelling Skin: Skin is warm, dry, no rashes or lesions. Psychiatric: Cooperative, appropriate mood and affect, Awake and alert, not agitated Neuro: Cranial nerves II-XII grossly intact. Strength 3/5 throughout. Sensations intact to light touch. Objective Labs 01/23/25 05:02 01/23/25 05:02 Labs: Laboratory Results - last 24 hr 01/21/25 01/21/25 01/22/25 11:40 20:34 05:05 WBC 11.1 H D RBC 3.44 L Hgb 10.2 L D Hct 30.6 L MCV 89 MCH 29.7 MCHC 33.3 RDW Std Deviation 42.8 Plt Count 158 Neut % (Auto) 84 H Lymph % (Auto) 9 L [place] % (Auto) 6 Eos % (Auto) 1 Baso % (Auto) 0 Neut # (Auto) 9.3 H Lymph # (Auto) 1.0 [place] # (Auto) 0.7 Eos # (Auto) 0.1 Baso # (Auto) 0.0 Immature Gran # (Auto) 0.06 H Absolute Nucleated RBC 0.00 Immature Gran % 1 H Nucleated RBC % 0 Sodium 137 Potassium 3.7 D Chloride 103 Carbon Dioxide 26.1 Anion Gap 8 BUN 12 Creatinine 0.5 L D Estim Creat Clear Calc 131.3 eGFR > 60 BUN/Creatinine Ratio 24 H Glucose 245 H D Calculated Osmolality 281 Lactic Acid 3.1 H Calcium 8.0 L Corrected Calcium 8.7 Phosphorus 1.7 L Magnesium 2.1 Total Bilirubin 0.4 AST 23 ALT 26 Alkaline Phosphatase 90 D Troponin I 0.094 H* 0.048 H* Total Protein 5.6 L Albumin 3.1 L D Globulin 2.5 Albumin/Globulin Ratio 1.2 ABG Interpretation ABG results: 01/21/25 09:29 ABG pH 7.37 ABG pCO2 39 ABG pO2 84 ABG HCO3 22 ABG O2 Saturation 97 ABG Base Excess -3 Quality Measures Quality Measures sepsis Current suspected stage: sepsis Possible source: genitourinary Blood cultures ordered: completed in ED Antibiotic ordered: Yes Assessment & Plan Assessment Current Active Medications: Generic Name Dose Route Start Last Admin Trade Name Freq PRN Reason Stop Dose Admin Acetaminophen 650 mg 01/21/25 10:57 01/22/25 08:29 Acetaminophen 325 Mg Tablet PO 02/20/25 10:56 650 mg Q6H PRN Administration PAIN SCALE 1-3 (mild Hydrocodone Bitart/Acetaminophen 1 tab 01/21/25 10:57 Hydrocodone/Apap 10/325 Tab PO 01/26/25 10:56 Q6HR PRN PAIN SCALE 7-10 (Severe Al Hydrox/Mg Hydrox/Simethicone 30 ml 01/21/25 10:57 Mg Hyd/Al Hyd/Althea (Maalox Reg) Susp 30 Ml Udc PO 02/20/25 10:56 Q6H PRN Indigestion Dextrose 25 ml 01/21/25 11:04 Dextrose 50%-Water Inj 50 Ml Syringe IV 02/20/25 11:03 Q15MIN PRN BG 50-70 responsive npo pt Dextrose 50 ml 01/21/25 11:04 Dextrose 50%-Water Inj 50 Ml Syringe IV 02/20/25 11:03 Q15MIN PRN BG <50 OR BG <70 & pt unresponsive Enoxaparin Sodium 40 mg 01/22/25 09:00 01/22/25 08:29 Enoxaparin Sod Inj 40 Mg/0.4 Ml Syringe SC 02/05/25 08:59 40 mg QDAY BOBBY Administration Gabapentin 100 mg 01/21/25 11:30 01/22/25 08:29 Gabapentin 100 Mg Capsule PO 02/20/25 11:29 100 mg QDAY BOBBY Administration Glucagon 1 mg 01/21/25 11:04 Glucagon Inj 1 Mg Vial IM Q15MIN PRN BG <70, and no IV access Ceftriaxone Sodium/Dextrose 1 gm in 50 mls @ 100 mls/hr 01/22/25 09:00 01/22/25 08:25 Rocephin/D5w 1gm Iv Premix IV 01/29/25 08:59 100 mls/hr QDAY BOBBY Administration Lactated Ringer's 1,000 mls @ 100 mls/hr 01/22/25 07:57 01/22/25 08:54 Lactated Ringers IV 01/22/25 17:56 100 mls/hr .Q10H ONE Administration Insulin Degludec 25 unit 01/22/25 09:00 01/22/25 08:33 Insulin Degludec 5 Unit/0.05 Ml (Per 5 Units) SC 02/21/25 08:59 25 unit QDAY BOBBY Administration Insulin Human Lispro 0 unit 01/21/25 11:30 01/22/25 07:42 Insulin Lispro (Admelog) 1 Unit/0.01 Ml Unit SC 02/20/25 11:29 2 unit ACHS BOBBY Administration Protocol Insulin Human Lispro 8 unit 01/22/25 11:30 Insulin Lispro (Admelog) 1 Unit/0.01 Ml Unit SC 02/21/25 11:29 AC BOBBY Metoclopramide HCl 10 mg 01/21/25 13:42 01/21/25 13:51 Metoclopramide Inj 5 Mg/Ml Vial 2 Ml IVP 02/20/25 13:59 10 mg Q8HR PRN Administration Vomiting or nausea Protocol Oxycodone/Acetaminophen 1 tab 01/21/25 10:57 Oxycodone/Apap 5/325 Tablet PO 01/26/25 10:56 Q6H PRN PAIN SCALE 4-6 (Moderate Potassium Phos/Sodium Phos 1 packet 01/22/25 11:19 [facility] Mbdb 1 Packet (1.5 Gm) PO 01/22/25 11:20 X1 ONE Sennosides 1 tab 01/21/25 10:57 Senna Tablet PO 02/20/25 10:56 BID PRN CONSTIPATION Protocol Plan 54 year old female with PMH of T2DM, pneumonia, UTI, and covid-19 infection in 2019, presented to the hospital on 01/21/2025 due to fever. Admitted for management of sepsis and HHS. #Sepsis-Improving #2/2 Complicated UTI -History of recurrent UTI. -CXR(01/21/2025): Poor inspiratory effort, Mild prominence left ventricle, No pneumonia or pulmonary edema -UA(01/21/2025): Turbid Yellow urine, Protein:1+, Glucose 4+, Ketones: 1+, Blood 1+, Nitrate negative, Urine RBC: 12, Urine WBC:305, Urine Bacteria: Rare -Past Urine Culture (04/05/2023) showed E.coli ,sensitive to Ceftriaxone -On admission, Clinical picture meets 3/4 SIRS criteria: T 105.4 (>100.4 or <96.8F), RR 24 (>20/min), HR 126 (>90/min), WBC 6.9 (>12 or <4K or Bands >10%). LA 3.5 (>2), and UTI as a source of infection =Severe Sepsis -On admission, Procalcitonin level of 9.67 -Blood culture grew GNR x 1. Plan: - Ceftriaxone increased to 2g IV (01/21-) - Follow-up on blood and urine cultures a.m. - Daily labs BMP, CBC, and electrolytes - Pending BC and UC #Severe Hyperglycemia #Diabetic Ketoacidosis (Mild/Evolving) #Insulin Dependent Type 2 Diabetes -On admission, Glucose level of 565, But no significant acidosis (pH 7.37, AG 14). Mild ketosis (beta hydroxybutyrate 1.5) -Exhibited Mental Status changes, per patient's daughter this morning before coming to the hospital. -Likely precipitated by infection. -Overlap with DKA is possible, but pH and AG argue against full DKA. -Per patient, she takes 60 units of Insulin Degludec and 12 units of Regular insulin, Metformin, and another medication that patient can't remember. -HbA1c (01/21/2025): 12.5 -Upon admission, Given 10 units of Regular Insulin x1. -Bedside Glucose level currently downtrending. Currently 291. -On admission, Patient's potassium: 4.3 -01/22: Patient's bedside glucose level was 242 this morning despite giving 42 units of insulin for the past 24 hours. Plan: -Continue LR 100ml/hr IVF 1L. -On Insulin Sliding Scale. -Bedside Glucose check ACHS. -Monitor electrolytes, glucose and insulin requirements tomorrow, will adjust accordingly -Med rec pending. -Total daily insulin dose increased to 49 units, comprising 25 units of insulin degludec and 8 units of premeal insulin lispro. -Patient's UTI likely due to Jardiance. Patient will need to change the medication dose or discontinue it. #Diabetic neuralgia -Lingering numbness and tingling sensation in patient's fingers and feet -Gabapentin 100mg PO qd #Troponemia -On admission, Troponin 0.206. Repeat Troponin 0.094. -Likely type 2 demand ischemia secondary to sepsis, tachycardia, and hypotension Plan: -Will continue to monitor Troponin level. #Transaminitis -ALP 208 -Likely secondary to sepsis. Plan: -Will continue to monitor. Disposition: Tele [facility] for sepsis and troponemia Diet: Low carb consistent diet GI prophylaxis: Maalox DVT prophylaxis: Enoxaprin Code: FULL Assessment and plan discussed with my attending physicianDr. Kenneth Alfaro (PGY-1) - Internal medicine resident Attending Provider Attestation/Addendum I attest that I was physically present for the evaluation, physical examination, lab and imaging review of the patient with the residents. I discussed the case with the residents and agree with the findings and plans of care as documented above. Maribel Cooper MD
[2025-01-22] MEDS: NAPH,KPH MBDB 1 PACKET (1.5 GM) PO ×2 (11:56→16:54)
[2025-01-22] MEDS: INSULIN LISPRO (AdmeLOG) 1 UNIT/0.01 ML UNIT 8 UNIT SC ×2 (11:57→16:53)
--- NOTE | 2025-01-22 11:59 | PC.SS ---
SS met with patient regarding her d/c plan. Pt is alert/oriented. Pt was admitted for UTI/Sepsis. Pt confirmed demographic and contact information is correct on facesheet. Pt resides with . Pt ambulates independently without assistance or DME. Pt is ok with all ADLs. Pt is 2 liters of O2. Pt does not utilizes O2 at home. Patient?s pharmacy of choice is [facility]. Pt named her , Luca Chacon medical decision maker if she is unable. Patient?s choice is to return home upon d/c. Pt states she is diabetic, has glucometer, and test strips. Pt states she utilizes insulin injections 2 X day. Pt states she is not on dialysis. Pt followed up with PCP 1 month ago. will provide transportation home. D/C plan: Return home Next of Kin: Luca Chacon, , phone# [phone] PCP: Dr. Abelardo Buchanan from [facility] in [place] Address: Correct on facesheet
[2025-01-23] VITALS: BP 127/66; PULSE 90; RESP 15; TEMP 36.8; O2SAT 95
[2025-01-23 04:00] VITALS: BP 135/73; PULSE 91; RESP 20; TEMP 36.6; O2SAT 94
[2025-01-23 05:43] LABS: Basophils # (Auto) 0.0 Thou/mm3 (0.0-0.2); Basophils % (Auto) 0 % (0-2.5); Eosinophils # (Auto) 0.1 Thou/mm3 (0.0-0.5); Eosinophils % (Auto) 1 % (0-10); Hematocrit 30.9 % (36.0-46.0); Hemoglobin 10.0 g/dL (12.0-16.0); Immature Granulocytes Auto 0.06 Thou/mm3 (0.00-0.00); Lymphocytes # (Auto) 1.4 Thou/mm3 (1.0-4.8); Lymphocytes % (Auto) 11 % (10-50); Mean Corpuscular HGB Conc 32.4 g/dl (31.0-37.0); Mean Corpuscular Hemoglobin 28.9 pg (25.0-35.0); Mean Corpuscular Volume 89 fL (80-100); Monocytes # (Auto) 0.8 Thou/mm3 (0.0-0.8); Monocytes % (Auto) 7 % (0-12); Neutrophils # (Auto) 9.9 Thou/mm3 (1.8-7.7); Neutrophils % (Auto) 81 % (37-80); Nucleated Red Blood Cell # 0.00 Thou/mm3 (0.00-0.00); Nucleated Red Blood Cell % 0 /100 WBC (0); Platelet Count 144 Thou/mm3 (140-440); RDW Standard Deviation 42.5 fL (36.4-46.3); Red Blood Count 3.46 Miln/mm3 (4.00-5.20); White Blood Count 12.3 Thou/mm3 (3.6-11.0)
[2025-01-23 06:00] VITALS: BMI 28.8
[2025-01-23 06:12] LABS: Alanine Aminotransferase 32 U/L (10-49); Albumin, Serum 3.5 gm/dL (3.5-5.0); Albumin/Globulin Ratio 1.3 (1.2-2.2); Alkaline Phosphatase 117 U/L (46-116); Anion Gap 9 (7-16); Aspartate Amino Transferase 34 U/L (0-34); BUN/Creatinine Ratio 25 Ratio (12-20); Bilirubin,Total 0.4 mg/dL (0.3-1.2); Blood Urea Nitrogen 10 mg/dL (9-23); Calcium 8.5 mg/dL (8.3-10.6); Calcium (Corrected) 8.9 mg/dL (8.5-10.1); Carbon Dioxide 27.3 mMol/L (20.0-31.0); Chloride 101 mMol/L (98-107); Creatinine (Component) 0.4 mg/dL (0.6-1.3); Estimated Creatinine Clearance 162.7 mL/min (>60); Globulin 2.7 gm/dL (2.3-3.5); Glucose 159 mg/dL (74-106); Magnesium 1.8 mg/dL (1.6-2.6); Osmolality,Calculated 275 (275-295); Phosphorous 2.2 mg/dL (2.4-5.1); Potassium 3.9 mMol/L (3.4-5.1); Sodium 137 mMol/L (136-145); Total Protein 6.2 gm/dL (5.7-8.2); eGFR > 60 See Note
[2025-01-23] MEDS: ACETAMINOPHEN 325 MG TABLET 650 MG PO (06:21)
[2025-01-23] MEDS: INSULIN LISPRO (AdmeLOG) 1 UNIT/0.01 ML UNIT SC ×2 (07:42→12:18)
[2025-01-23] MEDS: INSULIN LISPRO (AdmeLOG) 1 UNIT/0.01 ML UNIT 8 UNIT SC (07:43)
[2025-01-23 07:49] VITALS: BP 142/75; PULSE 91; RESP 18; TEMP 36.5; O2SAT 96
[2025-01-23 08:00] VITALS: PULSE 94
[2025-01-23] MEDS: INSULIN DEGLUDEC 5 UNIT/0.05 ML (PER 5 UNITS) 25 UNIT SC (08:01)
[2025-01-23] MEDS: ENOXAPARIN SOD INJ 40 MG/0.4 ML SYRINGE SC (08:02)
[2025-01-23] MEDS: cefTRIAXone/D5w 1gm IV premix 1 GM/50 ML BAG IV (08:02)
[2025-01-23] MEDS: GABAPENTIN 100 MG CAPSULE PO (08:02)
[2025-01-23] MEDS: NAPH,KPH MBDB 1 PACKET (1.5 GM) PO (10:14)
[2025-01-23] MEDS: MAGNESIUM OXIDE 400 MG TABLET PO (10:15)
[2025-01-23 11:09] VITALS: BMI 28.8
[2025-01-23 12:00] VITALS: BP 135/79; PULSE 84; PULSE 94; RESP 18; TEMP 36.5; O2SAT 95
[2025-01-23] MEDS: INSULIN LISPRO (AdmeLOG) 1 UNIT/0.01 ML UNIT 9 UNIT SC (12:19)
[2025-01-23] MEDS: METOCLOPRAMIDE INJ 5 MG/ML VIAL 2 ML 10 MG IVP (12:19)
--- NOTE | 2025-01-23 14:44 | ESDS_ITS ---
Planned Discharge Date 01/23/25 DS: Providers Provider Date of admission: 01/21/25 10:58 Primary care physician: JAY JAY Morrell Admitting Provider: Maribel Cooper MD Attending Provider on Admission: Maribel Cooper MD Attending Provider on DC: Adonis Alfaro DO Discharging Provider: Adonis Alfaro DO DS: Diagnosis Problem List Completed Was Problem List Reviewed/Reconciled?: Yes Hospital Course Hospital Course Hospital course: Summary: 54 year old female with PMH of T2DM, pneumonia, UTI, and covid-19 infection in 2019, presented to the hospital on 01/21/2025 due to fever. Patient was given antibiotics and insulin degludec and premeal insulin lispro for hyperglycemia. Patient was discharged with instructions to take ciprofloxacin 500mg PO bid for 1 week and CBC within one week of discharge. ED course: -Vitals: BP 94/55, WI 126, RR 24, Temp 105.2F O2 sat 96% NC on 3 L. -Labs: WBC 6.9 ABG pH 7.37 sodium 133, K4.3, AG 14, glucose 565, lactic acid 3.5, ALP 208, troponin 0.206, beta hydroxybutyrate 1.5, procalcitonin is 9.67. -UA(01/21/2025): Turbid Yellow urine, Protein:1+, Glucose 4+, Ketones: 1+, Blood 1+, Nitrate negative, Urine RBC: 12, Urine WBC:305, Urine Bacteria: Rare -EKG(01/21/2025): Sinus tachycardia -CXR(01/21/2025): Poor inspiratory effort, Mild prominence left ventricle, No pneumonia or pulmonary edema. In ED patient received, Ceftriaxone 1g IV x1, Aspirin 324 mg PO x1, IVF bolus NS 1L x2, Regular insulin 5 units IV x1, Hospital Course: Upon admission. Patient's WBC count was on a rising trend. Blood culture grew Klebsiella pneumo x 1 sensitive to ceftriaxone. Urine culture was negative. Patient was on ceftriaxone IV. Patient was on insulin sliding scale. Was given insulin degludec 25 units daily and 9 units of Premeal insulin lispro on the day of discharge. Patient's initial glucose level was 565. With HbA1c of 12.5. On the day of discharge patient's bedside glucose level was 169. Troponin admission was 0.206 initially and later downtrended to 0.048. Patient didn't have chest pain, palpation, SOB, N/V, fevers or chills on the day of discharge. Patient was discharged with instructions to take ciprofloxacin 500mg PO bid for 1 week and CBC within one week of discharge. Instructions: Please ciprofloxacin 500 mg tablet twice a day for one more week for UTI Continue insulin regimen as prescribed below - follow directions listed Stop taking cefdinir, cetrizine, famotidine, ibuprofen, insulin glargine Please follow-up with your PCP within 1 week of discharge or follow-up at the [facility] [address] [place] [address] Ask your PCP to follow-up on CBC (complete blood work one week after discharge) If your symptoms worsen or if you develop new chest pain, shortness of breath, dizziness, loss of consciousness - please come back to the ED immediately. Stable to discharge to HOME #Sepsis-Improving #2/2 Complicated UTI #Severe Hyperglycemia #Diabetic Ketoacidosis (Mild/Evolving) #Insulin Dependent Type 2 Diabetes #Diabetic neuralgia #Troponemia #Transaminitis Assessment and plan discussed with my attending physician Dr. Kenneth Alfaro (PGY-1) - Internal medicine resident Time Spent with Patient Time attestation: Total time spent providing and/or coordinating discharge services: 33 min Time spent: Greater than 30 minutes Exam Vital Signs Temp Pulse Resp BP Pulse Ox O2 Del Method O2 Flow Rate 97.7 F 84 18 135/79 H 95 Room Air 1 01/23/25 12:00 01/23/25 12:00 01/23/25 12:00 01/23/25 12:00 01/23/25 12:00 01/23/25 12:00 01/23/25 00:00 Narrative Exam General: AAO x3, Frail, stressed Eye: PERRL, EOMI, normal conjunctiva, no scleral icterus HENT: Normocephalic, atraumatic, hearing intact to conversation at normal volume, moist oral mucosa Neck: Supple, non-tender, no JVD, no lymphadenopathy Lungs: Non-labored respirations, symmetric chest rise, Clear to auscultate bilaterally, No wheezing, rhonchi, crackles Heart: Peripheral pulses intact bilaterally, Regular Rate and Rhythm. Abdomen: Soft, non-distended, no palpable masses, Generalized abdomen tenderness on palpation Musculoskeletal: Normal range of motion and strength, No cyanosis or edema, No visible joint swelling Skin: Skin is warm, dry, no rashes or lesions. Psychiatric: Cooperative, appropriate mood and affect, Awake and alert, not agitated Neuro: Cranial nerves II-XII grossly intact. Strength 3/5 throughout. Sensations intact to light touch. Discharge Plan Plan Patient Disposition: HOME (Self Care) Patient condition on transfer: Stable Care Plan Goals: Please ciprofloxacin 500 mg tablet twice a day for one more week for UTI Continue insulin regimen as prescribed below - follow directions listed Stop taking cefdinir, cetrizine, famotidine, ibuprofen, insulin glargine Please follow-up with your PCP within 1 week of discharge or follow-up at the [facility] [address] [place] [address] Ask your PCP to follow-up on CBC (complete blood work one week after discharge) If your symptoms worsen or if you develop new chest pain, shortness of breath, dizziness, loss of consciousness - please come back to the ED immediately. Prescriptions/Referrals Prescriptions/Med Rec: New insulin degludec 100 unit/mL (3 mL) insulin pen 25 unit subcut QDAY Qty: 15 0RF insulin lispro [Humalog KwikPen Insulin] 100 unit/mL insulin pen 9 unit subcut TIDWMEAL 30 Days Qty: 8.1 0RF (DME) blood-glucose meter Kit See Rx Instructions .Route Qty: 1 0RF Rx Instructions: As directed (DME) Blood Glucose Test Strip See Rx Instructions .Route Qty: 50 0RF Rx Instructions: Instructions: Prepare the Test Strip: Insert the test strip into the glucose meter as instructed by the laborer general. Follow the prompts on the meter to activate it. Clean and Prick Your Finger: Wash your hands with soap and water or use an alcohol swab to clean your finger. Choose a finger that is not sore or bruised. Insert the lancet into the lancing device and prick your finger gently. Squeeze out a small drop of blood. Apply Blood to the Test Strip: Touch the tip of the test strip to the drop of blood. The blood will automatically be drawn into the strip. Wait for Results: Follow the instructions on the glucose meter and wait for the reading to appear. Note down the result in your logbook. Clean Up: Discard the used lancet and test strip in a sharps container. Clean your finger with soap and water or an alcohol swab (DME) lancets 21 gauge misc See Rx Instructions .Route Qty: 100 0RF Rx Instructions: Twist and pull the long piece of safety plastic off the end of the lancet. Then, place the lancet between your index and middle finger (like holding a syringe). Place and hold onto the finger you wish to draw blood from and press down on the large yellow button until you hear a click. (DME) FreeStyle Jhoana 3 Plus Sensor Device See Rx Instructions .Route Qty: 2 0RF Rx Instructions: As directed (DME) FreeStyle Jhoana 3 [place] Misc See Rx Instructions .Route Qty: 1 0RF Rx Instructions: As directed ciprofloxacin HCl 500 mg tablet 500 mg PO BID 7 Days Qty: 14 0RF (DME) pen needle, diabetic [Pen Needle] 29 gauge x 1/2 needle See Rx Instructions .Route Qty: 100 0RF Rx Instructions: As directed Continued metformin 500 mg Tablet 1,000 mg PO BID omeprazole 20 mg tablet,delayed release (DR/EC) 20 mg PO QDAY oxycodone 5 mg tablet 5 mg PO Q6H PRN (Reason: pain) Discontinued (DME) Blood Glucose Test Strip See Rx Instructions .ROUTE .MEDSUPPLY Qty: 100 0RF Rx Instructions: As directed check blood sugar times a day (DME) blood-glucose meter [Blood Glucose Monitoring] Kit See Rx Instructions .ROUTE .MEDSUPPLY Qty: 1 0RF Rx Instructions: As directed check blood sugar times a day (DME) pen needle, diabetic [Lite Touch Insulin Pen [place]] 31 gauge x 1/4 needle See Rx Instructions .ROUTE .MEDSUPPLY Qty: 50 0RF Rx Instructions: As directed (DME) lancets [BD Ultra-Fine II Lancets] 30 gauge misc See Rx Instructions .ROUTE .MEDSUPPLY Qty: 100 0RF Rx Instructions: As directed famotidine [Pepcid] 40 mg tablet 40 mg PO QDAY Qty: 14 0RF cetirizine 10 mg tablet 10 mg PO QDAY Qty: 30 0RF cefdinir 300 mg capsule 300 mg PO BID 5 Days Qty: 10 0RF Jardiance 25 mg tablet 25 mg PO QAM ibuprofen 600 mg tablet 600 mg PO Q6H PRN (Reason: fever or pain) insulin lispro [Humalog KwikPen Insulin] 100 unit/mL insulin pen 12 unit subcut BID insulin glargine [Basaglar KwikPen U-100 Insulin] 100 unit/mL (3 mL) insulin pen 60 unit SC HS Referrals: Nish Macias FNP [Primary Care Provider] Outpatient Orders (i.e. Home Health, Labs, Imaging): CBC (Routine) Timeframe: 1 Week Location: None Selected Ordered By: Tate Novak Patient/Caregiver Discharge Instructions Education Materials: Insulin Degludec injection, Insulin Lispro injection Print Language: Mohawk Stand Alone Forms: Shahla Award Info., Patient Portal Info Letter Discharge Order Discharge Orders: Discharge (Routine); Ordered 01/23/25 Ordered By: Tate Novak Quality Discharge Quality Measures VTE prophylaxis MD Attestestation MD Attestation I attest that I was physically present for the evaluation, physical examination, lab and imaging review of the patient with the residents. I discussed the case with the residents and agree with the findings and plans of care as documented above. Patient seen and examined at bedside this morning, appears comfortable. Complains of mild abdominal pain around right lower quadrant, minimal tenderness on palpation. Vital signs are stable. Has been afebrile for more than 48 hours. Blood culture grew Klebsiella pneumonia and only 1 sample sensitive to multiple antibiotics. Urine culture came back negative but patient appears to have taken cefoxitin outpatient possibly secondary to inadequate treatment. Has been able to tolerate diet well. Blood glucose has been controlled with insulin regimen. We will discharge her on oral ciprofloxacin, adjusted insulin regimen. Recom mended to obtain CBC in 1 week. Recommended to follow-up with PCP in 1 to 2 weeks after discharge. Maribel Cooper MD
[2025-01-23 15:19] VITALS: BP 145/83; PULSE 92; RESP 18; TEMP 36.5; O2SAT 95
== END 2025-01-23 15:30 | disposition home or self-care (01) | DRG 720 ==
LOC: SERX 09:57 → SERHOLD 11:55 → S2NX 16:04 → S3NX 01-22 13:13
PROVIDERS: Admitting Provider Student in an Organized Health Care Education/Training Program; Emergency Provider Emergency Medicine; PCP Nurse Practitioner Family; Visit Provider Student in an Organized Health Care Education/Training Program
DX: A41.9 Sepsis, unspecified organism (principal); R65.20 Severe sepsis without septic shock; J15.0 Pneumonia due to Klebsiella pneumoniae; Z86.16 Personal history of COVID-19; Z87.440 Personal history of urinary (tract) infections; N39.0 Urinary tract infection, site not specified; E11.42 Type 2 diabetes mellitus with diabetic polyneuropathy; Z88.8 Allergy status to other drugs, medicaments and biological substances; Z79.4 Long term (current) use of insulin; E11.10 Type 2 diabetes mellitus with ketoacidosis without coma; Z79.84 Long term (current) use of oral hypoglycemic drugs; R74.01 Elevation of levels of liver transaminase levels; Z16.29 Resistance to other single specified antibiotic
CPT/HCPCS: 36415; 36600; 71045; 80053; 81001; 82010; 82803; 83036; 83605; 83690; 83735; 83880; 84100; 84145; 84484; 85025; 85610; 85730; 87040; 87077; 87086; 87186; 87502; 87811; 93005; 93225; 96361; 96365; 96366; 96375; 99285; J0131; J0696; J1650; J1815; J2765; J3475; J7030; J7120; A9270

== ENCOUNTER 2025-04-05 01:09 | Emergency (ER) | payer MEDICAID, SELFPAY ==
[2025-04-05 01:12] VITALS: BMI 30.5
[2025-04-05 01:22] VITALS: BP 165/77; PULSE 74; RESP 18; TEMP 36.6; O2SAT 96
--- NOTE | 2025-04-05 01:30 | PD.EDALLER ---
ED Allergic Reaction RME/HPI General Chief complaint: Allergic Reaction Stated complaint: ITCHY RASH Time Seen by Provider: 04/05/25 01:26 Arrival date/time: 04/05/25 01:09 54F with history of DM and chronic itchiness presents to ED with several days of itchy rash. Patient denies SOB, throat swelling, as well as new foods, meds, and hygiene products. Patient took Benadryl w/o relief. Limitations: no limitations Related Data Home Medications ?Medication ?Instructions ?Recorded ?Confirmed metformin 500 mg tablet 1,000 mg PO BID diabetes 10/02/19 01/21/25 omeprazole 20 mg tablet,delayed 20 mg PO QDAY 01/21/25 01/21/25 release oxycodone 5 mg tablet 5 mg PO Q6H PRN pain 01/21/25 01/21/25 Previous Rx's ?Medication ?Instructions ?Recorded blood sugar diagnostic (Blood #50 ea 01/23/25 Glucose Test strips) blood-glucose meter #1 ea 01/23/25 blood-glucose sensor (FreeStyle #2 ea 01/23/25 Jhoana 3 Plus Sensor device) blood-glucose,exercise science instructor,cont #1 ea 01/23/25 (FreeStyle Jhoana 3 [place]) insulin degludec 100 unit/mL (3 25 unit (0.25 mL) subcut QDAY #15 01/23/25 mL) subcutaneous pen mL lancets 21 gauge #100 ea 01/23/25 pen needle, diabetic 29 gauge x #100 ea 01/23/25 1/2 (Pen Needle) prednisone 20 mg tablet 20 mg PO BID 5 days #10 tabs 04/05/25 Allergies Allergy/AdvReac Type Severity Reaction Status Date / Time ondansetron (From Zofran) Allergy Severe Hives Verified 04/05/25 01:15 Review of Systems Review of Systems Systems Reviewed: All systems reviewed, normal except as documented Integumentary/Breasts Skin/Breast: Reports as per HPI and Reports pruritus Past Medical History Past Medical History CARDIAC: Negative Cardiac Disorders, Myocardial Infarction, Cardiac Arrhythmia, Atrial Fibrillation, Angina, Heart Murmur, Coronary Artery Disease, Atherosclerotic Heart Disease, Peripheral Vascular Disease, Hypercholesterolemia, Aneurysm, Congestive Heart Failure, Congenital Heart Disease, Valvular Heart Disease, Rheumatic Fever, Cardiomyopathy, Edema, Pericarditis, Cellulitis, Deep Vein Thrombosis, Hypertension, Hypotension or Varicose Veins RESPIRATORY: Negative Chronic Obstructive Pulmonary Disease (COPD) GASTROINTESTINAL: Positive Obesity GENITOURINARY: Negative Renal Disease ENDOCRINE: Positive Diabetes Mellitus Type 2; Negative Endocrine Disorders, Diabetes Mellitus Type 1, Hypoglycemia, Na's Syndrome, Portia's Disease, Hyperthyroidism, Hypothyroidism, Parathyroid Disease, Pituitary Disease or Adrenal Disease OTHER HISTORY: Negative Autoimmune Disease Family History FAMILY HISTORY: Negative Family Psychiatric Problems, Family Respiratory Disorders, Family Cardiac Disorders, Family Gastrointestinal Problems, Family Cancer, Family Surgery or Family Anesthesia Reaction Surgical History SURGICAL: Negative Pacemaker Social History SMOKING STATUS: Never smoker SECOND HAND EXPOSURE: No ED Exam General Limitations: Present no limitations General appearance: Present alert and in no apparent distress Head Head exam: Present atraumatic Neck Neck exam: Present normal inspection, full ROM and trachea midline Chest Chest inspection: Present normal inspection and symmetric chest wall rise Neurological Exam Neurological exam: Present alert and oriented X3 Psychiatric Psychiatric exam: Present normal affect and normal mood Skin Skin exam: Present warm, dry, intact and normal color Course Quality Measures none Orders Category Date Time Status dexAMETHasone INJ [Decadron Inj] Med 04/05/25 01:26 Discontinued 10 mg PO X1 ONE Vital Signs Vital signs: Vital Signs Temperature 97.9 F 04/05/25 01:22 Pulse Rate 74 04/05/25 01:22 Respiratory Rate 18 04/05/25 01:22 Blood Pressure 165/77 H 04/05/25 01:22 Pulse Oximetry (%) 96 04/05/25 01:22 Oxygen Delivery Method Room Air 04/05/25 01:22 O2 at 96% on RA and WNLs Allergic Reaction MDM Narrative MDM Narrative:: 54F with history of DM and chronic itchiness presents to ED with several days of itchy rash. Patient denies SOB, throat swelling, as well as new foods, meds, and hygiene products. Patient took Benadryl w/o relief. Physical exam reveals no obvious rash. Normal WOB. Speech normal. Patient is afebrile, calm, and alert. Machine Technician given to see souvenir assembler and/or dynamics ax technical architect and that steroids can increase her BS. Patient data External records reviewed:: [facility] previous records Clinical information provided by:: patient Social determinants that could affect healthcare access:: none Patient has the following chronic illnesses:: DM and chronic itchines How is presenting disease/condition affected by chronic disease/condition?: exacerbated by Evaluation data The following diagnostics were reviewed and interpreted by me:: other (specify) (none) Lab and/or radiology exams considered but not ordered:: not ordered Interpretation Summary: n/a Medications / Prescriptions Medications or Prescriptions considered but not ordered:: ordered Medication administrations:: Medication Administration History Discontinued Medications Dexamethasone Sodium Phosphate (Dexamethasone Sod Phos Inj 10 Mg/Ml Vial) 10 mg PO X1 ONE Stop: 04/05/25 01:27 above Consultations Consultation(s) initiated? (list below): No Diagnosis Differential Diagnosis allergic reaction: anaphylaxis, allergic reaction, angioedema, contact dermatitis, adverse reaction to drug, viral enanthem, urticaria and other (pruritis) Most likely diagnosis given after review of the tests above:: pruritis Admission Indicated Admission indicated?: not indicated Admission Request Was there a request for admission?: No Disposition Plan Disposition Plan: Discharge Discharge Attestation Discharge Attestation: The patient and all family members were given an opportunity to ask questions and understood the discharge instructions. Discharge instructions specifically effects, indications for sooner follow up or return to the emergency department, and the expected course of current diagnosis. Patient condition: Stable Discharge Plan Plan Patient Disposition: HOME (Self Care) Discharge Disposition comment: Stable Prescriptions/Referrals Prescriptions/Med Rec: New prednisone 20 mg tablet 20 mg PO BID 5 Days Qty: 10 0RF No Action metformin 500 mg Tablet 1,000 mg PO BID omeprazole 20 mg tablet,delayed release (DR/EC) 20 mg PO QDAY oxycodone 5 mg tablet 5 mg PO Q6H PRN (Reason: pain) insulin degludec 100 unit/mL (3 mL) insulin pen 25 unit subcut QDAY Qty: 15 0RF (DME) blood-glucose meter Kit See Rx Instructions .Route Qty: 1 0RF Rx Instructions: As directed (DME) Blood Glucose Test Strip See Rx Instructions .Route Qty: 50 0RF Rx Instructions: Instructions: Prepare the Test Strip: Insert the test strip into the glucose meter as instructed by the executive director of marketing. Follow the prompts on the meter to activate it. Clean and Prick Your Finger: Wash your hands with soap and water or use an alcohol swab to clean your finger. Choose a finger that is not sore or bruised. Insert the lancet into the lancing device and prick your finger gently. Squeeze out a small drop of blood. Apply Blood to the Test Strip: Touch the tip of the test strip to the drop of blood. The blood will automatically be drawn into the strip. Wait for Results: Follow the instructions on the glucose meter and wait for the reading to appear. Note down the result in your logbook. Clean Up: Discard the used lancet and test strip in a sharps container. Clean your finger with soap and water or an alcohol swab (DME) lancets 21 gauge misc See Rx Instructions .Route Qty: 100 0RF Rx Instructions: Twist and pull the long piece of safety plastic off the end of the lancet. Then, place the lancet between your index and middle finger (like holding a syringe). Place and hold onto the finger you wish to draw blood from and press down on the large yellow button until you hear a click. (DME) FreeStyle Jhoana 3 Plus Sensor Device See Rx Instructions .Route Qty: 2 0RF Rx Instructions: As directed (DME) FreeStyle Jhoana 3 [place] Misc See Rx Instructions .Route Qty: 1 0RF Rx Instructions: As directed (DME) pen needle, diabetic [Pen Needle] 29 gauge x 1/2 needle See Rx Instructions .Route Qty: 100 0RF Rx Instructions: As directed Problem List Clinical Impression: Chronic pruritus Patient/Caregiver Discharge Instructions Additional Instructions: Please follow-up with PCP within 24-48 hours and return immediately if symptoms worsen. See PCP for referral to souvenir assembler and/or dynamics ax technical architect. Be aware steroids will increase your blood sugar. Print Language: Swedish Stand Alone Forms: Patient Portal Info Letter FRANCESCA/JAY JAY Supervising Physician FRANCESCA/JAY JAY Supervising Physician: Dr. Viera
== END 2025-04-05 01:51 | disposition home or self-care (01) ==
LOC: SERX 01:40
PROVIDERS: Emergency Provider Emergency Medicine; PCP Physician Assistant
DX: L29.9 Pruritus, unspecified (principal)
CPT/HCPCS: 99281; J1100